=== PATIENT | male | born 1960 | race Caucasian/White ===

== ENCOUNTER 2019-03-21 21:35 | Inpatient (IN) | payer BC ==
--- NOTE | 2019-03-21 22:00 | ED Physician Documentation ---
PD HPI NVD - Stated complaint Stated Complaint: ABD PX - Chief complaint Chief Complaint: Abd Pain - History obtained from History obtained from: Patient - History of Present Illness Timing - onset: How many days ago (2-3) Timing - duration: Days (2-3) Timing - details: Abrupt onset, Still present Associated symptoms: Abdominal pain (for 2-3 days, with less appetite, fullness, and nausea. No vomiting. Unable to eat due to increased nausea and fullness with that. Has had some diarrhea onset just today.), Loss of appetite. No: Melena, Hematochezia, Dysuria Contributing factors: No: Sick contact, Bad food, Recent antibiotics Improved by: No: Eating, Position Worsened by: Eating, Moving (feels more crampy with moving and walking). No: Position Similar symptoms before: Has not had sx before Recently seen: Not recently seen Review of Systems Constitutional: reports: Myalgias. denies: Fever, Chills Nose: denies: Rhinorrhea / runny nose, Congestion Throat: denies: Sore throat Cardiac: denies: Chest pain / pressure, Palpitations Respiratory: reports: Cough (mild persistent from smoking). denies: Dyspnea GI: reports: Abdominal Pain, Nausea, Diarrhea (mild today), Other (In further questioning he states he does eat a lot of chicken. He is not aware of swallowing anything sharp in the last week or so. He has not had previous abdominal surgery.). denies: Abdominal Swelling, Vomiting, Constipation, Bloody / black stool : denies: Dysuria, Frequency Neurologic: reports: Generalized weakness. denies: Focal weakness, Numbness, Near syncope, Altered mental status, Headache PD PAST MEDICAL HISTORY - Past Medical History Cardiovascular: None Respiratory: None Neuro: None Endocrine/Autoimmune: None - Past Surgical History Past Surgical History: No - Allergies Allergies/Adverse Reactions: Allergies Allergy/AdvReac Type Severity Reaction Status Date / Time Penicillins Allergy Unknown Verified 03/21/19 21:51 - Living Situation Living Arrangement: reports: At home - Social History Does the pt smoke?: Yes - Family History Family history: reports: Non contributory PD ED PE NORMAL - Vitals Vital signs reviewed: Yes - General General: Alert and oriented X 3, Well developed/nourished, Other (seems uncomfortable in abdomen) - HEENT HEENT: Ears normal, Pharynx benign. No: Moist mucous membranes - Neck Neck: Supple, no meningeal sign, No adenopathy - Cardiac Cardiac: RRR (mild tachycardic), No murmur - Respiratory Respiratory: Clear bilaterally - Abdomen Abdomen: Soft, Other (diffusely tender, but most in central/mid abd and to left mid abd. Not tender RUQ itself. Some rebound and percussion tenderness in mid abdomen. ). No: Normal bowel sounds (increased) - Male Male : Other (no inguinal hernias felt) - Rectal Rectal: Deferred - Back Back: No CVA TTP - Derm Derm: Normal color, Warm and dry - Extremities Extremities: Normal ROM s pain, No edema, No calf tenderness / cord - Neuro Neuro: Alert and oriented X 3, No motor deficit, Normal speech Results - Vitals Vitals: Vital Signs - 24 hr 03/21/19 03/21/19 03/21/19 21:51 22:13 23:45 Temperature 36.8 C Heart Rate 109 H 88 81 Respiratory 22 18 16 Rate Blood Pressure 159/87 H 127/84 H 147/80 H O2 Saturation 99 97 97 03/22/19 03/22/19 03/22/19 00:33 02:11 03:04 Temperature 37.1 C Heart Rate 84 85 86 Respiratory 16 16 16 Rate Blood Pressure 149/85 H 131/84 H 134/83 H O2 Saturation 96 94 92 03/22/19 03/22/19 03/22/19 04:35 05:41 06:32 Temperature 36.5 C Heart Rate 81 81 78 Respiratory 16 16 16 Rate Blood Pressure 119/64 126/77 136/68 H O2 Saturation 94 95 96 Oxygen O2 Source Room air - Labs Labs: Laboratory Tests 03/21/19 03/21/19 03/21/19 22:00 22:00 23:20 WBC 11.9 H RBC 5.24 Hgb 15.5 Hct 47.0 MCV 89.7 MCH 29.6 MCHC 33.0 RDW 14.4 Plt Count 443 MPV 9.0 Neut # (Auto) 9.3 H Lymph # (Auto) 1.1 L Kaufman # (Auto) 1.2 H Eos # (Auto) 0.2 Baso # (Auto) 0.1 Absolute Nucleated RBC 0.00 Nucleated RBC % 0.0 Sodium 139 Potassium 4.1 Chloride 102 Carbon Dioxide 21 Anion Gap 16.0 H BUN 23 H Creatinine 1.0 Estimated GFR (MDRD) 77 L Glucose 165 H Calcium 9.8 Total Bilirubin 1.4 H AST 22 ALT 23 Alkaline Phosphatase 103 Total Protein 9.1 H Albumin 3.9 Globulin 5.2 H Albumin/Globulin Ratio 0.8 L Lipase 23 Urine Color YELLOW Urine Clarity SL. CLOUDY Urine pH 5.0 Ur Specific [place] 1.015 Urine Protein 100 H Urine Glucose (UA) NEGATIVE Urine Ketones TRACE Urine Occult Blood SMALL H Urine Nitrite NEGATIVE Urine Bilirubin NEGATIVE Urine Urobilinogen 1 (NORMAL) Ur Leukocyte Esterase NEGATIVE Urine RBC 0-5 Urine WBC 0-3 Ur Squamous Epith Cells FEW Squamous Urine Bacteria None Seen Urine Casts 3-5 Granular Casts Urine Mucus Moderate Strands Ur Microscopic Review INDICATED Urine Culture Comments NOT INDICATED - Rads (name of study) abd CT Radiology: Prelim report reviewed (1.8 cm linear density consistent with likely piece of bone which appears to have perforated the intestinal wall at the distal small bowel with localized free fluid and free air but no abscess. There is segment of inflammation of the intestine in that area.), See rad report PD MEDICAL DECISION MAKING - ED course Complexity details: reviewed results, re-evaluated patient, considered differential, d/w patient, d/w lactation consultant (I talked with Dr. Mercedes who is on for surgery. She states she would be in first thing in the morning as the patient's has good vitals is afebrile and normal minimally elevated white count. She felt he was stable to not need surgery in the middle of night. We will continue IV fluids. Pain medicines as needed. Start antibiotics. Advised the patient he will be needing surgery in the timeframe for that. We will call Dr. Camacho sooner if he seems to develop sepsis symptoms.) Departure - Departure Disposition: ED Transfer to [facility] Clinical Impression: Perforated abdominal viscus Abdominal pain Qualifiers: Abdominal location: generalized Qualified Code(s): R10.84 - Generalized abdominal pain Condition: Stable Record reviewed to determine appropriate education?: Yes
[2019-03-21] MEDS ORDERED: SODIUM CHLORIDE 0.9% 1,000 ML IV ONE ×2 (22:14→22:15)
[2019-03-21] MEDS ORDERED: HYDROmorphone 1 MG/ML CARPUJECT IVP STA (22:14)
[2019-03-21] MEDS ORDERED: ONDANSETRON 4 MG/2 ML VIAL IVP STA (22:14)
[2019-03-21] MEDS ORDERED: FAMOTIDINE 20 MG/2 ML VIAL IVP STA (22:15)
[2019-03-21 22:22] LABS: BASOPHILS # (AUTO) 0.1 10^3/uL (0.0-0.1); BASOPHILS % (AUTO) 0.5 %; EOSINOPHILS # (AUTO) 0.2 10^3/uL (0.0-0.7); EOSINOPHILS % (AUTO) 1.4 %; HGB - HEMOGLOBIN 15.5 g/dL (14.0-18.0); LYMPHOCYTES # (AUTO) 1.1 10^3/uL (1.5-3.5); LYMPHOCYTES % (AUTO) 9.1 %; MEAN CORPUSCULAR HEMOGLOBIN 29.6 pg (27.0-31.0); MEAN CORPUSCULAR VOLUME 89.7 fL (80.0-94.0); MONOCYTES # (AUTO) 1.2 10^3/uL (0.0-1.0); MONOCYTES % (AUTO) 10.4 %; NEUTROPHILS # (AUTO) 9.3 10^3/uL (1.5-6.6); PLT - PLATELET COUNT 443 10^3/uL (130-450); RED BLOOD COUNT 5.24 10^6/uL (4.70-6.10); RED CELL DISTRIBUTION WIDTH 14.4 % (12.0-15.0); WHITE BLOOD COUNT 11.9 x10^3/uL (4.8-10.8)
[2019-03-21 22:32] LABS: ALBUMIN 3.9 g/dL (3.2-5.5); ALBUMIN/GLOBULIN RATIO 0.8 (1.0-2.2); BILIRUBIN,TOTAL 1.4 mg/dL (0.2-1.0); CALCIUM 9.8 mg/dL (8.5-10.3); TOTAL PROTEIN 9.1 g/dL (6.7-8.2)
[2019-03-21] MEDS ORDERED: IOVERSOL 320 100 ML VIAL IVP ONE ×2 (22:37→23:11)
[2019-03-21 23:28] LABS: GLUCOSE, URINE (UA) NEGATIVE (NEGATIVE); KETONES,URINE (UA) TRACE mg/dL (NEGATIVE); LEUKOCYTE ESTERASE, URINE NEGATIVE (NEGATIVE); NITRITE,URINE NEGATIVE (NEGATIVE); OCCULT BLOOD,URINE SMALL (NEGATIVE); PROTEIN,URINE 100 mg/dL (NEGATIVE); UROBILINOGEN,URINE 1 (NORMAL) E.U./dL (NORMAL)
[2019-03-21 23:49] LABS: CLARITY,URINE SL. CLOUDY (CLEAR)
[2019-03-21 23:50] LABS: BACTERIA,URINE None Seen /HPF (None Seen); BILIRUBIN,URINE NEGATIVE (NEGATIVE); ICTOTEST,URINE NEGATIVE; MUCUS,URINE Moderate Strands; RBC,URINE 0-5 /HPF (0-5); SQUAMOUS EPITHELIAL CELL,UR FEW Squamous (<= Few)
--- NOTE | 2019-03-21 23:55 | CT Report ---
Reason: abd pain for 3 days, mid abd Procedure Date: 03/21/2019 Accession Number: [id number] / [id number] Procedure: CT - Abdomen/Pelvis W CPT Code: FULL RESULT: EXAM: CT ABDOMEN AND PELVIS EXAM DATE: 03/21/2019 11:09 PM. CLINICAL HISTORY: Abd pain for 3 days, mid abd. COMPARISONS: None. TECHNIQUE: Routine helical CT imaging was performed through the abdomen and pelvis. IV contrast: 100 cc Optiray 320. Enteric contrast: No. Reconstructions: Coronal and sagittal. In accordance with CT protocol optimization, one or more of the following dose reduction techniques were utilized for this exam: automated exposure control, adjustment of mA and/or KV based on patient size, or use of iterative reconstructive technique. FINDINGS: ABDOMEN: Lung Bases: Incompletely included lower lungs are grossly clear. Heart size is within normal limits. No basilar effusions. Liver: Unremarkable. Spleen: Unremarkable. Pancreas: Unremarkable. Gallbladder/Bile Ducts: Gallbladder is unremarkable. Biliary tree is normal caliber. Adrenal Glands: Unremarkable. Kidneys: Left renal cysts are present. 3 mm left interpolar renal calculus. No hydronephrosis. Right kidney is unremarkable. Peritoneum/Mesentery/Bowel: Segmental thickening and inflammation of distal ileum. 1.8 cm linear hyperdensity extending through posterior ileum wall in the upper anterior pelvis (3/81). Adjacent mesentery is severely inflamed. There is a small amount of extraperitoneal free air. Lymph nodes: No mesenteric, periportal, or retroperitoneal lymphadenopathy. Vasculature: Abdominal aorta is nonaneurysmal. Portal vein is patent. Hepatic veins are patent. PELVIS: The bladder is unremarkable for the degree of distention. Prostate is present. No pelvic lymphadenopathy. Bones: No suspicious osseous lesions. IMPRESSION: 1.8 cm linear likely fragment of bone or a needle perforating distal small bowel. There is associated segmental distal small bowel inflammation/infection. Small amount of adjacent intraperitoneal free air and severe inflammation of the adjacent mesentery. No fluid collections to suggest abscess. [facility]
[2019-03-22] MEDS ORDERED: cefTRIAXone 2 GM VIAL IVP STA (00:18)
[2019-03-22] MEDS ORDERED: metroNIDAZOLE 500 MG/100 ML 500 MG/100 ML BAG ONE (00:33)
[2019-03-22] MEDS ORDERED: metroNIDAZOLE 500 MG/100 ML 500 MG/100 ML BAG IV SCH ×2 (00:34→01:00)
[2019-03-22] MEDS ORDERED: metroNIDAZOLE 500 MG/100 ML 500 MG/100 ML BAG IV ONE (01:32)
[2019-03-22] MEDS ORDERED: HYDROmorphone 1 MG/ML CARPUJECT IVP STA (02:12)
[2019-03-22] MEDS ORDERED: SODIUM CHLORIDE 0.9% 1,000 ML IV ONE (02:12)
[2019-03-22] MEDS ORDERED: cefOXitin 2 GM in SODIUM CHLORIDE 0.9% MINIBAG 100 ML IV STA (07:15)
--- NOTE | 2019-03-22 07:15 | ANESTHESIA ---
Pre-Anesthesia VS, & Labs - Diagnosis perforated bowel with foreign body - Procedure laparotomy with indicated procedures Vital Signs: Temp Pulse Resp BP Pulse Ox 36.5 C 78 16 136/68 H 96 03/22/19 05:41 03/22/19 06:32 03/22/19 06:32 03/22/19 06:32 03/22/19 06:32 Height 6 ft 3 in Weight (kg) 133.084 kg Body Mass Index 36.6 - NPO >8 hours - Lab Results Current Lab Results: Laboratory Tests 03/21/19 22:00: Sodium 139, Potassium 4.1, Chloride 102, Carbon Dioxide 21, Anion Gap 16.0 H, BUN 23 H, Creatinine 1.0, Estimated GFR (MDRD) 77 L, Glucose 165 H, Calcium 9.8, Total Bilirubin 1.4 H, AST 22, ALT 23, Alkaline Phosphatase 103, Total Protein 9.1 H, Albumin 3.9, Globulin 5.2 H, Albumin/Globulin Ratio 0.8 L, Lipase 23 03/21/19 22:00: WBC 11.9 H, RBC 5.24, Hgb 15.5, Hct 47.0, MCV 89.7, MCH 29.6, MCHC 33.0, RDW 14.4, Plt Count 443, MPV 9.0, Neut # (Auto) 9.3 H, Lymph # (Auto) 1.1 L, [place]aines # (Auto) 1.2 H, Eos # (Auto) 0.2, Baso # (Auto) 0.1, Absolute Nucle ated RBC 0.00, Nucleated RBC % 0.0 Fish Bones: 03/21/19 22:00 03/21/19 22:00 Home Medications and Allergies Active Medications Metronidazole (Flagyl 500 Mg/100 Ml) 500 mg in 100 mls @ 100 mls/hr IV ONCE BRIANA Last Admin: 03/22/19 01:35 Dose: Not Given Allergies/Adverse Reactions: Allergies Allergy/AdvReac Type Severity Reaction Status Date / Time Penicillins Allergy Unknown Verified 03/21/19 21:51 Anes History & Medical History - Anesthetic History Anesthesia Complications: reports: No previous complications - Medical History Cardiovascular: reports: None Pulmonary: reports: None Gastrointestinal: reports: None Urinary: reports: Kidney stones Neuro: reports: None Endocrine/Autoimmune: reports: None Smoking Status: Current every day smoker Psychosocial: reports: Depression Exam General: Alert Dental: WNL Mallampati classification: II Respiratory: Lungs clear Cardiovascular: Regular rate, Normal S1, Normal S2 Plan Anesthesia Type: General Consent for Procedure(s) Verified and Reviewed: Yes Code Status: Attempt Resuscitation ASA classification: 2-Mild systemic disease Is this case an emergency?: Yes
[2019-03-22] MEDS: HYDROmorphone 1 MG/ML CARPUJECT IVP STA ×2 (07:20)
[2019-03-22] MEDS ORDERED: ceFAZolin 1 GM VIAL ONE (07:32)
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
[2019-03-22] MEDS ORDERED: cefOXitin 2 GM VIAL IV ONE ×2 (07:38→08:37)
[2019-03-22] MEDS ORDERED: LACTATED RINGERS 1,000 ML IV ONE (07:45)
[2019-03-22] MEDS ORDERED: BUPIVACAINE 0.5% PF 10 ML VIAL ONE (08:21)
[2019-03-22] MEDS ORDERED: BUPIVACAINE 0.5%-EPI 1:200000 PF 30 ML VIAL ONE (08:21)
[2019-03-22] MEDS ORDERED: LIDOCAINE MPF 1%-EPI 1:200000 30 ML VIAL ONE (08:23)
[2019-03-22] MEDS ORDERED: ONDANSETRON 4 MG/2 ML VIAL IVP ONE (08:37)
[2019-03-22] MEDS ORDERED: NEOSTIGMINE 1 MG/1 ML 10 ML MDV IVP ONE (08:37)
[2019-03-22] MEDS ORDERED: fentaNYL 100 MCG/2 ML VIAL IVP ONE (08:37)
[2019-03-22] MEDS ORDERED: ROCURONIUM 50 MG/5 ML VIAL IVP ONE (08:37)
[2019-03-22] MEDS ORDERED: KETOROLAC 30 MG/ML VIAL IVP ONE (08:37)
[2019-03-22] MEDS ORDERED: ACETAMINOPHEN 1,000 MG/100 ML 100 ML IV ONE (08:37)
[2019-03-22] MEDS ORDERED: PROPOFOL 200 MG/20 ML VIAL IVP ONE (08:37)
[2019-03-22] MEDS ORDERED: GLYCOPYRROLATE 1 MG/5 ML VIAL IVP ONE (08:37)
[2019-03-22] MEDS ORDERED: BUPIVACAINE 0.5% PF 10 ML VIAL IM ONE (08:38)
[2019-03-22] MEDS ORDERED: LIDOCAINE 1%-EPI 1:100000 30 ML MDV SUBQ ONE (08:38)
--- NOTE | 2019-03-22 08:54 | OPERATIVE REPORT ---
Operative Report - General Procedure Date: 03/22/19 Planned Procedure: Exploratory Laparotomy with Removal of Foreign Body and Indicated Procedures Pre-Op Diagnosis: Perforated Viscus with Foreign Procedure Performed: Exploratory Laparotomy with Removal of Foreign Body and Meckel's Diverticulectomy Post Op Diagnosis: Perforated Meckel's Diverticulum - Procedure Note Primary Surgeon: Doug Anesthesia Provider: Dr. Rodriguez Anesthesia Technique: General LMA, Local Pathology: Portion of bowel and foreign body to pathology in formalin Estimated Blood Loss (mL): 25 Findings: 1. Meckel's Diverticulum perforated by a portion of foreign body resembling a toothpick 2. Small, contained, intraperitoneal abscess Complications: None apparent - Other Other Information/Narrative: After obtaining informed consent, the patient is brought to the operating room and placed in the supine position on the operating table. Following successful induction of general endotracheal anesthesia, appropriate padding of vomiting prominences, and placement of appropriate monitors, the abdomen was prepped and draped in the standard surgical fashion. A timeout was held per SCOAP protocol. Following infiltration with local anesthetic to create a field block, an incision was created inferior to the umbilicus and carried down through the skin and subcutaneous tissue to reveal the fascia below. The fascia was opened under direct vision followed by the peritoneum. We immediately encountered a small volume of murky fluid. There was no associated foul odor.The wound protector was placed in the abdominal cavity.The involved segment of bowel was then mobilized into the wound.There was a small contained abscess lateral to the palpable foreign object.Foreign object itself was grasped and removed from the bowel with a clamp. It was consistent with a half of a toothpick.We then examined the remaining bowel. It appeared to be healthy. The toothpick had perforated a 3 cm widemouth Meckel's diverticulum.I elected to remove the entire Meckel's diverticulum. This was done using a 75 mm gastrointestinal anastomotic device. This was placed across the base of the Meckel's diverticulum being ca reful not to narrow the ileum.The diverticulum itself was located in approximately the mid ileum at least 36 inches from the ileocecal valve.We did not mobilize the right colon or appendix.The staple line was then oversewn with interrupted Vicryl suture.The small bowel was evaluated proximally to the ligament of Treitz and distally to the ileocecal valve. No other abnormalities were appreciated. The abdomen was irrigated with warm saline solution and aspirated free of all fluid and particulate matter. The peritoneum was closed with running Vicryl suture. The fascia was closed with 0 PDS suture. Subcutaneous tissues were closed with Vicryl and clips were applied in the skin. Due to the small intra-abdominal abscess, the clips were packed in between with quarter inch iodoform gauze. All sponge, needle, and instrument counts were correct at the conclusion of the case. The patient was allowed to awaken from anesthesia without difficulty and taken to the post anesthesia care unit in good condition.
[2019-03-22] MEDS ORDERED: ACETAMINOPHEN 325 MG TABLET PO PRN (09:01)
[2019-03-22] MEDS ORDERED: SUGAMMADEX 200 MG/2 ML VIAL IVP ONE (09:04)
[2019-03-22] MEDS: DEXTROSE 5%-0.9% NACL 1,000 ML IV SCH (10:45)
[2019-03-22] MEDS: PANTOPRAZOLE 40 MG TABLET PO SCH (11:32)
[2019-03-22] MEDS: metroNIDAZOLE 500 MG/100 ML 500 MG/100 ML BAG IV SCH ×2 (13:29→21:01)
[2019-03-22] MEDS ORDERED: cefOXitin 2 GM in SODIUM CHLORIDE 0.9% MINIBAG 100 ML IV SCH (14:00)
[2019-03-22] MEDS: KETOROLAC 30 MG/ML VIAL IVP PRN (16:26)
[2019-03-22] MEDS: cefOXitin 2 GM in SODIUM CHLORIDE 0.9% MINIBAG 100 ML IV SCH (16:27)
[2019-03-22] MEDS: SODIUM CHLORIDE FLUSH 0.9% 10 ML SYRINGE IVP SCH (16:28)
[2019-03-22] MEDS: HYDROmorphone 1 MG/ML CARPUJECT IVP PRN (20:56)
[2019-03-22] MEDS: ONDANSETRON 4 MG/2 ML VIAL IVP PRN (21:08)
[2019-03-23] MEDS: HYDROmorphone 1 MG/ML CARPUJECT IVP PRN ×4 (00:06→15:52)
[2019-03-23] MEDS: ONDANSETRON 4 MG/2 ML VIAL IVP PRN ×2 (00:07→08:04)
[2019-03-23] MEDS: DEXTROSE 5%-0.9% NACL 1,000 ML IV SCH ×2 (00:10→11:12)
[2019-03-23] MEDS: cefOXitin 2 GM in SODIUM CHLORIDE 0.9% MINIBAG 100 ML IV SCH ×4 (00:11→23:57)
[2019-03-23] MEDS: SODIUM CHLORIDE FLUSH 0.9% 10 ML SYRINGE IVP SCH ×4 (00:14→23:58)
[2019-03-23] MEDS ORDERED: METOPROLOL SUCCINATE 25 MG TABLET PO ONE (00:56)
[2019-03-23] MEDS: KETOROLAC 30 MG/ML VIAL IVP PRN ×2 (01:19→08:04)
[2019-03-23 05:06] LABS: BASOPHILS # (AUTO) 0.1 10^3/uL (0.0-0.1); BASOPHILS % (AUTO) 0.7 %; EOSINOPHILS # (AUTO) 0.5 10^3/uL (0.0-0.7); EOSINOPHILS % (AUTO) 5.1 %; HGB - HEMOGLOBIN 12.8 g/dL (14.0-18.0); LYMPHOCYTES # (AUTO) 1.3 10^3/uL (1.5-3.5); LYMPHOCYTES % (AUTO) 14.8 %; MEAN CORPUSCULAR HEMOGLOBIN 29.7 pg (27.0-31.0); MEAN CORPUSCULAR HGB CONC 31.9 g/dL (32.0-36.0); MEAN PLATELET VOLUME 8.5 fL (7.4-11.4); MONOCYTES # (AUTO) 1.1 10^3/uL (0.0-1.0); MONOCYTES % (AUTO) 11.9 %; NEUTROPHILS % (AUTO) 67.2 %; PLT - PLATELET COUNT 389 10^3/uL (130-450); RED BLOOD COUNT 4.31 10^6/uL (4.70-6.10); RED CELL DISTRIBUTION WIDTH 14.6 % (12.0-15.0); WHITE BLOOD COUNT 8.9 x10^3/uL (4.8-10.8)
[2019-03-23 05:19] LABS: ALBUMIN/GLOBULIN RATIO 0.8 (1.0-2.2); BILIRUBIN,TOTAL 0.9 mg/dL (0.2-1.0); CALCIUM 8.5 mg/dL (8.5-10.3); CREATININE 0.8 mg/dL (0.6-1.2); TOTAL PROTEIN 6.8 g/dL (6.7-8.2)
[2019-03-23] MEDS: metroNIDAZOLE 500 MG/100 ML 500 MG/100 ML BAG IV SCH ×2 (06:19→13:44)
[2019-03-23] MEDS: PANTOPRAZOLE 40 MG TABLET PO SCH ×2 (06:20→21:39)
--- NOTE | 2019-03-23 07:43 | PROVIDER PROGRESS NOTE ---
Subjective - Prog Note Date Prog Note Date: 03/23/19 Prog Note Time: 07:41 - Subjective Pt reports feeling: Improved Subjective: Mukul reports feeling significantly better this morning. He says his abdomen feels much less sore than it did before we operated on it. He has not been out of bed and walked yet. He says he knows he has hypertension and has been on and off medication for many years. He periodically neglects to refill the prescription.Dr. Foy is his primary care physician. Objective - Vital Signs/Intake & Output Reviewed Vital Signs: Yes Vital Signs: Vital Signs x48h Temp Pulse Resp BP Pulse Ox 03/23/19 06:56 81 190/89 H 03/23/19 00:40 182/80 H 03/23/19 00:35 37.0 C 88 16 172/79 H 99 Intake & Output: Intake & Output 03/20/19 03/21/19 03/22/19 03/23/19 23:59 23:59 23:59 23:59 Intake Total 1000 5456 700 Output Total 1225 425 Balance 1000 4231 275 - Objective General Appearance: positive: No acute distress, Alert Eyes Bilateral: positive: Normal inspection, PERRL, EOMI ENT: positive: ENT inspection nml, Pharynx nml, No signs of dehydration Neck: positive: Nml inspection, Thyroid nml, No JVD, Trachea midline Respiratory: positive: Chest non-tender, No respiratory distress, Breath sounds nml Cardiovascular: positive: Regular rate & rhythm, No murmur, No gallop Abdomen: positive: Nml bowel sounds, Tenderness (Appropriately tender to palp ation in the periumbilical region. The wound is clean. Packing is removed this morning.) Skin: positive: Color nml, No rash, Warm, Dry Extremities: positive: Non-tender Neurologic/Psychiatric: positive: Oriented x3, CN's nml (2-12) - Lab Results Fish Bones: 03/23/19 04:55 03/23/19 04:55 Other Labs: Lab Results x24hrs 03/23/19 03/23/19 Range/Units 04:55 04:55 WBC 8.9 (4.8-10.8) x10^3/uL RBC 4.31 L (4.70-6.10) 10^6/uL Hgb 12.8 L (14.0-18.0) g/dL Hct 40.1 L (42.0-52.0) % MCV 93.0 (80.0-94.0) fL MCH 29.7 (27.0-31.0) pg MCHC 31.9 L (32.0-36.0) g/dL RDW 14.6 (12.0-15.0) % Plt Count 389 (130-450) 10^3/uL MPV 8.5 (7.4-11.4) fL Neut # (Auto) 6.0 (1.5-6.6) 10^3/uL Lymph # (Auto) 1.3 L (1.5-3.5) 10^3/uL [place] # (Auto) 1.1 H (0.0-1.0) 10^3/uL Eos # (Auto) 0.5 (0.0-0.7) 10^3/uL Baso # (Auto) 0.1 (0.0-0.1) 10^3/uL Absolute Nucleated RBC 0.00 x10^3/uL Nucleated RBC % 0.0 /100WBC Sodium 140 (135-145) mmol/L Potassium 3.9 (3.5-5.0) mmol/L Chloride 104 (101-111) mmol/L Carbon Dioxide 25 (21-32) mmol/L Anion Gap 11.0 (6-13) BUN 20 (6-20) mg/dL Creatinine 0.8 (0.6-1.2) mg/dL Estimated GFR (MDRD) 99 (>89) Glucose 129 H (70-100) mg/dL Calcium 8.5 (8.5-10.3) mg/dL Total Bilirubin 0.9 (0.2-1.0) mg/dL AST 14 (10-42) IU/L ALT 18 (10-60) IU/L Alkaline Phosphatase 77 (42-121) IU/L Total Protein 6.8 (6.7-8.2) g/dL Albumin 3.0 L (3.2-5.5) g/dL Globulin 3.8 (2.1-4.2) g/dL Albumin/Globulin Ratio 0.8 L (1.0-2.2) - Diagnostic Imaging Diagnostic Imaging Comments: Nothing new to review ABX Reporting Has patient been on IV antibiotics over the past 48 hours?: Yes Assessment/Plan - Problem List (1) Perforated abdominal viscus Impression: Abdominal pain due to perforated abdominal viscus. This is significantly improved status post laparotomy with removal of foreign body and Meckel's diverticulectomy.We will restart the patient's home antihypertensive which is lisinopril with hydrochlorothiazide.He will get up and walk around this morning. If he does well, we will plan to discharge him about noon.He is going to call and check with his sister to see if she can provide him with a ride home. (2) Abdominal pain Qualifiers: Abdominal location: generalized Qualified Code(s): R10.84 - Generalized abdominal pain
[2019-03-23] MEDS: SODIUM CHLORIDE FLUSH 0.9% 10 ML SYRINGE IVP PRN ×4 (08:04→22:39)
[2019-03-23] MEDS ORDERED: LISINOPRIL 5 MG TABLET PO SCH (09:00)
[2019-03-23] MEDS ORDERED: hydroCHLOROthiazide 12.5 MG CAPSULE PO SCH (09:00)
[2019-03-23] MEDS ORDERED: oxyCODONE 5 MG TABLET PO PRN (10:46)
[2019-03-23] MEDS: FAMOTIDINE 20 MG/2 ML VIAL IVP SCH ×2 (11:11→21:39)
[2019-03-23] MEDS: CALCIUM CARBONATE CHEW 500 MG TABLET PO SCH ×2 (11:11→21:38)
[2019-03-23] MEDS: FUROSEMIDE 20 MG/2 ML VIAL IVP SCH (11:11)
--- NOTE | 2019-03-23 15:53 | PROVIDER PROGRESS NOTE ---
Subjective - Prog Note Date Prog Note Date: 03/23/19 Prog Note Time: 15:51 - Subjective Pt reports feeling: No change Subjective: Klever says he has continued to have reflux all afternoon. He has required Toradol, oxycodone, and Dilaudid for pain control. He walked a little in the halls but is still a bit uncomfortable. Denies any nausea but reports significant burning and epigastric pain. He adds that he deals with reflux symptoms most of the time at home. Objective - Vital Signs/Intake & Output Vital Signs: Vital Signs x48h Pulse Resp BP Pulse Ox 03/23/19 09:30 76 172/86 H 95 03/23/19 07:52 85 20 201/95 H 96 Intake and Output 03/20/19 03/21/19 03/22/19 03/23/19 23:59 23:59 23:59 23:59 Intake Total 1000 5456 2500 Output Total 1225 1575 Balance 1000 4231 925 Intake: Intake, IV Amount 1000 3400 1400 Dextrose 5%-0.9% NaCl 1, 1000 1000 000 ml @ 100 mls/hr IV . Q10H BRIANA Rx#:[id number] Sodium Chloride 0.9% 1, 1000 000 ml @ 250 mls/hr IV . Q4H ONE Rx#:[id number] Sodium Chloride 0.9% 1, 1000 000 ml @ Wide Open IV . Q0M ONE Rx#:[id number] Sodium Chloride 0.9% 1, 1000 000 ml @ Wide Open IV . Q0M ONE Rx#:[id number] cefOXitin 2 gm In Sodium 100 200 Chloride 0.9% Minibag 100 ml @ 100 mls/hr IV Q8H BRIANA Rx#:[id number] metroNIDAZOLE 500 MG/100 100 ML 500 mg In 100 ml @ 100 mls/hr IV ONCE BRIANA Rx#: [id number] metroNIDAZOLE 500 MG/100 200 200 ML 500 mg In 100 ml @ 100 mls/hr IV Q8HR BRIANA Rx#: [id number] Oral 2056 1100 Output: Urine 1225 1575 Other: # Voids 1 1 % Meal consumed 90% 75% Vital Signs 03/21/19 03/21/19 03/21/19 21:51 22:13 23:45 Temperature 36.8 C Heart Rate 109 H 88 81 Heart Rate [ Brachial] Respiratory 22 18 16 Rate Blood Pressure 159/87 H 127/84 H 147/80 H Blood Pressure [Left Brachial artery] O2 Saturation 99 97 97 03/22/19 03/22/19 03/22/19 00:33 02:11 03:04 Temperature 37.1 C Heart Rate 84 85 86 Heart Rate [ Brachial] Respiratory 16 16 16 Rate Blood Pressure 149/85 H 131/84 H 134/83 H Blood Pressure [Left Brachial artery] O2 Saturation 96 94 92 03/22/19 03/22/19 03/22/19 04:35 05:41 06:32 Temperature 36.5 C Heart Rate 81 81 78 Heart Rate [ Brachial] Respiratory 16 16 16 Rate Blood Pressure 119/64 126/77 136/68 H Blood Pressure [Left Brachial artery] O2 Saturation 94 95 96 03/22/19 03/22/19 03/22/19 07:41 09:04 09:05 Temperature 37.4 C Heart Rate 82 85 86 Heart Rate [ Brachial] Respiratory 18 15 16 Rate Blood Pressure 158/92 H 144/72 H 138/71 H Blood Pressure [Left Brachial artery] O2 Saturation 96 100 100 03/22/19 03/22/19 03/22/19 09:10 09:15 09:22 Temperature 37.6 C H Heart Rate 82 81 77 Heart Rate [ Brachial] Respiratory 16 18 17 Rate Blood Pressure 154/78 H 157/73 H 155/71 H Blood Pressure [Left Brachial artery] O2 Saturation 100 100 99 03/22/19 03/22/19 03/22/19 09:25 09:31 09:40 Temperature 37.4 C 36.4 C L Heart Rate 78 77 Heart Rate [ 74 Brachial] Respiratory 17 18 18 Rate Blood Pressure 147/64 H 144/66 H Blood Pressure 143/60 H [Left Brachial artery] O2 Saturation 99 96 99 03/22/19 03/22/19 03/22/19 10:10 11:10 12:10 Temperature 36.5 C 36.5 C 36.6 C Heart Rate Heart Rate [ 75 70 72 Brachial] Respiratory 18 20 18 Rate Blood Pressure Blood Pressure 135/72 H 139/66 H 141/68 H [Left Brachial artery] O2 Saturation 98 96 96 03/22/19 03/22/19 03/23/19 16:06 20:22 00:35 Temperature 36.7 C 36.8 C 37.0 C Heart Rate Heart Rate [ 78 78 88 Brachial] Respiratory 20 20 16 Rate Blood Pressure Blood Pressure 143/63 H 167/80 H 172/79 H [Left Brachial artery] O2 Saturation 98 98 99 03/23/19 03/23/19 03/23/19 00:40 06:56 07:52 Temperature Heart Rate Heart Rate [ 81 85 Brachial] Respiratory 20 Rate Blood Pressure Blood Pressure 182/80 H 190/89 H 201/95 H [Left Brachial artery] O2 Saturation 96 03/23/19 09:30 Temperature Heart Rate Heart Rate [ 76 Brachial] Respiratory Rate Blood Pressure Blood Pressure 172/86 H [Left Brachial artery] O2 Saturation 95 Intake & Output: Intake & Output 03/20/19 03/21/19 03/22/19 03/23/19 23:59 23:59 23:59 23:59 Intake Total 1000 5456 2500 Output Total 1225 1575 Balance 1000 4231 925 - Objective General Appearance: positive: No acute distress, Alert - Lab Results Fish Bones: 03/23/19 04:55 03/23/19 04:55 Other Labs: Lab Results x24hrs 03/23/19 03/23/19 Range/Units 04:55 04:55 WBC 8.9 (4.8-10.8) x10^3/uL RBC 4.31 L (4.70-6.10) 10^6/uL Hgb 12.8 L (14.0-18.0) g/dL Hct 40.1 L (42.0-52.0) % MCV 93.0 (80.0-94.0) fL MCH 29.7 (27.0-31.0) pg MCHC 31.9 L (32.0-36.0) g/dL RDW 14.6 (12.0-15.0) % Plt Count 389 (130-450) 10^3/uL MPV 8.5 (7.4-11.4) fL Neut # (Auto) 6.0 (1.5-6.6) 10^3/uL Lymph # (Auto) 1.3 L (1.5-3.5) 10^3/uL [place] # (Auto) 1.1 H (0.0-1.0) 10^3/uL Eos # (Auto) 0.5 (0.0-0.7) 10^3/uL Baso # (Auto) 0.1 (0.0-0.1) 10^3/uL Absolute Nucleated RBC 0.00 x10^3/uL Nucleated RBC % 0.0 /100WBC Sodium 140 (135-145) mmol/L Potassium 3.9 (3.5-5.0) mmol/L Chloride 104 (101-111) mmol/L Carbon Dioxide 25 (21-32) mmol/L Anion Gap 11.0 (6-13) BUN 20 (6-20) mg/dL Creatinine 0.8 (0.6-1.2) mg/dL Estimated GFR (MDRD) 99 (>89) Glucose 129 H (70-100) mg/dL Calcium 8.5 (8.5-10.3) mg/dL Total Bilirubin 0.9 (0.2-1.0) mg/dL AST 14 (10-42) IU/L ALT 18 (10-60) IU/L Alkaline Phosphatase 77 (42-121) IU/L Total Protein 6.8 (6.7-8.2) g/dL Albumin 3.0 L (3.2-5.5) g/dL Globulin 3.8 (2.1-4.2) g/dL Albumin/Globulin Ratio 0.8 L (1.0-2.2) Assessment/Plan - Problem List (1) Perforated abdominal viscus Impression: Will hold on discharge for now.Stop metronidazole as this may be contributing to his discomfort.Start sucralfate and change Protonix to twice daily.MiraLAX twice daily as well. (2) Abdominal pain Qualifiers: Abdominal location: generalized Qualified Code(s): R10.84 - Generalized abdominal pain
[2019-03-23] MEDS ORDERED: POLYETHYLENE GLYCOL 3350 17 GM PACKET PO PRN (15:54)
[2019-03-23] MEDS: oxyCODONE 5 MG TABLET PO PRN ×2 (16:33→22:38)
[2019-03-23] MEDS ORDERED: hydrALAZINE INJ 20 MG/ML VIAL IVP PRN (16:36)
[2019-03-23] MEDS ORDERED: cloNIDine 0.1 MG TABLET PO PRN (16:44)
[2019-03-23] MEDS: SUCRALFATE 1 GM/10 ML UDC PO SCH ×2 (18:09→21:39)
--- NOTE | 2019-03-23 18:15 | CONSULTATION NOTE ---
Referring Provider Name of Referring Provider:: Dr. Camacho Consult Date: 03/23/19 Chief Complaint - Chief Complaint Chief Complaint: HTN, uncontrollled History of Present Illness - History of Present Illness HPI Comment/Other: pt is referred from Dr. Camacho for consult of uncontrolled HTN. Pt was status post of Exploratory Laparotomy with Removal of Foreign Body due to Perforated Meckel's Diverticulum. pt report he followup his PCP Dr. Foy. He told me he took Lisinopril, HCTZ and Metoprolol at home. He report he was medical non- compliance. he was not followup your PCP for refill of his BP medications. His BP was 206/95, HR 81 when I visited pt. He report he had headache before, now he felt his headache is resolved. He denies chest pain, Shortness of breath. 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 - Substance History Use: Uses substance without health or social issues: NONE Abuse: Recurrent use of substance despite neg consequences: NONE - POLST Patient has POLST: No POLST Status: Full Code Meds/Allgy - Home Medications Home Medications: Ambulatory Orders Medication Instructions Recorded Confirmed Aspirin [Aspirin EC] 81 mg PO DAILY 03/23/19 03/23/19 Famotidine [Pepcid AC] 2 tab PO DAILY PRN 03/23/19 03/23/19 Multivitamin [Multivitamins] 1 tab PO DAILY 03/23/19 03/23/19 Simethicone [Gas Relief] 80 mg PO QID PRN 03/23/19 03/23/19 - Allergies Allergies/Adverse Reactions: Allergies Allergy/AdvReac Type Severity Reaction Status Date / Time Penicillins Allergy Unknown Verified 03/21/19 21:51 Review of Systems - Constitutional Constitutional: denies: Fatigue, Fever, Chills, Malaise, Weakness, Poor appetite, Diaphoresis, Night sweats, Weight gain, Weight loss - Eyes Eyes: denies: Pain, Irritation, Amaurosis, Blurred vision, Spots in vision, Field loss, Vision loss, Dipolpia - Ears, Nose & Throat Ears, Nose & Throat: denies: Ear pain, Hearing loss, Tinnitus, Nasal pain, Nasal discharge, Nosebleeds, Nasal obstruction, Nasal congestion, Postnasal drainage, Dentures, Sore throat, Hoarseness, Mouth lesions, Bleeding gums, Dental decay - Cardiovascular Cariovascular: denies: Irregular heart rate, Palpitations, Chest pain, Edema, Lightheadedness, Syncope, Exertional dyspnea, Decr. exercise tolerance - Respiratory Respiratory: denies: Cough, Sputum production, Wheezing, Snoring, Hemoptysis, Orthopnea, SOB at rest, SOB with exertion - Gastrointestinal Gastrointestinal: denies: Abdominal pain, Abdominal distention, Constipation, Diarrhea, Change in bowel habits, Rectal bleeding, Black stools, Bloody stools, Nausea, Vomiting, Bile emesis, Kishan blood emesis - Genitourinary Genitourinary: denies: Dysuria, Frequency, Urgency, Hematuria, Incontinence, Flank pain, Nocturia, Urethral discharge - Musculoskeletal Musculoskeletal: denies: Muscle pain, Back pain, Muscle aches, Limited range of motion, Muscle weakness, Gout - Integumentary Integumentary: denies: Rash, Pruritis, Lesions, Dryness, Lumps, Acne, Pigment changes, Nail changes - Neurological Neurological: reports: Headache. denies: General weakness, Focal weakness, Dizziness, Numbness, Memory problems, Pre-existing deficit, Abnormal gait, Seizures, Incoordination, Slurred speech - Psychiatric Psychiatric: denies: Depression, Anxiety, Suicidal, Delusions, Hallucinations, Homicidal - Endocrine Endocrine: denies: Polyuria, Polydypsia, Polyphagia, Intolerance to cold - Hematologic/Lymphatic Hematologic/Lymphatic: denies: Anemia, Bruising, Petechiae, Blood clots, Lymphadenopathy, Bleeding tendencies Exam - Vital Signs Reviewed Vital Signs: Yes Vital Signs: Vital Signs x48h Temp Pulse Resp BP BP BP Pulse Ox 03/23/19 18:00 82 169/77 H 169/77 H 03/23/19 17:45 86 180/77 H 03/23/19 17:30 84 173/73 H 03/23/19 17:23 85 171/72 H 03/23/19 17:18 84 169/70 H 03/23/19 17:13 180/86 H 03/23/19 17:05 86 182/77 H 03/23/19 16:56 187/85 H 03/23/19 15:57 36.9 C 81 18 206/95 H 202/97 H 94 - Physical Exam General Appearance: positive: No acute distress, Alert. negative: Lethargic Eyes Bilateral: positive: Normal inspection, PERRL, No lid inflammation, Conjunctivae nml ENT: positive: ENT inspection nml, Pharynx nml, No signs of dehydration. negative: Purulent nasal drainage, Pharyngeal erythema, Oral lesions Neck: positive: Nml inspection, Thyroid nml, No JVD, Trachea midline. negative: Thyromegaly, Lymphadenopathy (R), Lymphadenopathy (L), Stiff neck, Swelling/bruising, Tracheal deviation Respiratory: positive: Chest non-tender, No respiratory distress, Breath sounds nml. negative: Wheezes, Rales, Rhonchi Cardiovascular: positive: Regular rate & rhythm, No murmur, No gallop. negative: Irregularly irregular, Extrasystoles, Tachycardia, Bradycardia, JVD present, Systolic murmur, Diastolic murmur Peripheral Pulses: positive: 2+ Abdomen: positive: Non-tender, No organomegaly. negative: No distention, Tenderness, Guarding, Rebound Back: positive: Nml inspection. negative: CVA tenderness (R), CVA tenderness (L) Skin: positive: Color nml, No rash, Warm, Dry. negative: Cyanosis, Diaphoresis, Pallor Extremities: positive: Non-tender, Full ROM, Nml appearance. negative: Calf tenderness, Joint swelling, Yayo's sign/cords Neurologic/Psychiatric: positive: Oriented x3, Sensation nml, Mood/affect nml. negative: Weakness, Sensory loss, Facial droop, Slurred/abnml speech, Depressed mood/affect Conclusion/Plan - Diagnosis Diagnosis: 1, HTN, uncontrolled. increase pt's home three BP dosage. add PRN hydralazine and Clonidine. pt eat and drink, and normal BUN and creatinine, hold his IVF now. closely vital monitor. 2, medical non-compliance. advise pt for medical compliance, explain the importance of BP controlled. - Lab Results Fish Bones: 03/23/19 04:55 03/23/19 04:55
[2019-03-23] MEDS: METOPROLOL SUCCINATE 25 MG TABLET PO SCH (21:39)
[2019-03-24 05:36] LABS: BASOPHILS # (AUTO) 0.1 10^3/uL (0.0-0.1); BASOPHILS % (AUTO) 0.5 %; EOSINOPHILS # (AUTO) 0.6 10^3/uL (0.0-0.7); EOSINOPHILS % (AUTO) 6.7 %; HGB - HEMOGLOBIN 11.7 g/dL (14.0-18.0); LYMPHOCYTES # (AUTO) 1.6 10^3/uL (1.5-3.5); MEAN CORPUSCULAR HEMOGLOBIN 29.8 pg (27.0-31.0); MEAN CORPUSCULAR HGB CONC 32.1 g/dL (32.0-36.0); MEAN CORPUSCULAR VOLUME 92.9 fL (80.0-94.0); MEAN PLATELET VOLUME 8.6 fL (7.4-11.4); MONOCYTES # (AUTO) 1.1 10^3/uL (0.0-1.0); MONOCYTES % (AUTO) 11.3 %; NEUTROPHILS % (AUTO) 64.1 %; PLT - PLATELET COUNT 363 10^3/uL (130-450); RED BLOOD COUNT 3.92 10^6/uL (4.70-6.10); RED CELL DISTRIBUTION WIDTH 14.6 % (12.0-15.0); WHITE BLOOD COUNT 9.3 x10^3/uL (4.8-10.8)
[2019-03-24 05:47] LABS: ALBUMIN 2.8 g/dL (3.2-5.5); ALBUMIN/GLOBULIN RATIO 0.8 (1.0-2.2); BILIRUBIN,TOTAL 0.8 mg/dL (0.2-1.0); CALCIUM 8.6 mg/dL (8.5-10.3); CREATININE 0.7 mg/dL (0.6-1.2); MAGNESIUM 1.8 mg/dL (1.7-2.8); TOTAL PROTEIN 6.4 g/dL (6.7-8.2)
[2019-03-24] MEDS: SUCRALFATE 1 GM/10 ML UDC PO SCH ×3 (06:43→15:52)
[2019-03-24] MEDS: CALCIUM CARBONATE CHEW 500 MG TABLET PO SCH (08:06)
[2019-03-24] MEDS: METOPROLOL SUCCINATE 25 MG TABLET PO SCH (08:06)
[2019-03-24] MEDS: PANTOPRAZOLE 40 MG TABLET PO SCH (08:06)
[2019-03-24] MEDS: oxyCODONE 5 MG TABLET PO PRN ×2 (08:06→16:17)
[2019-03-24] MEDS: cefOXitin 2 GM in SODIUM CHLORIDE 0.9% MINIBAG 100 ML IV SCH ×2 (08:14→15:52)
[2019-03-24] MEDS: SODIUM CHLORIDE FLUSH 0.9% 10 ML SYRINGE IVP PRN (08:16)
[2019-03-24] MEDS: SODIUM CHLORIDE FLUSH 0.9% 10 ML SYRINGE IVP SCH (08:16)
[2019-03-24] MEDS: FUROSEMIDE 20 MG/2 ML VIAL IVP SCH (08:16)
[2019-03-24] MEDS: FAMOTIDINE 20 MG/2 ML VIAL IVP SCH (08:16)
[2019-03-24] MEDS ORDERED: hydroCHLOROthiazide 12.5 MG CAPSULE PO SCH (09:00)
[2019-03-24] MEDS ORDERED: LISINOPRIL 5 MG TABLET PO SCH (09:00)
[2019-03-24] MEDS ORDERED: LISINOPRIL 20 MG TABLET PO SCH (10:45)
[2019-03-24] MEDS ORDERED: hydroCHLOROthiazide 25 MG TABLET PO SCH (10:46)
[2019-03-24] MEDS ORDERED: HYDROmorphone 0.5 MG/0.5 ML SYRINGE IVP PRN (10:47)
--- NOTE | 2019-03-24 15:28 | Discharge Plan ---
Discharge Plan Problem Reviewed?: Yes Disposition: Home, Self Care Condition: Good Prescriptions: Oxycodone HCl/Acetaminophen [Percocet 10-325 mg Tablet] 1 each PO Q6HR PRN #20 tablet PRN Reason: Pain Lisinopril/Hydrochlorothiazide [Lisinopril-Hctz 20-25 mg Tab] 1 each PO DAILY #30 tablet Metoprolol Succinate [Toprol Xl] 25 mg PO BID #60 tablet Pantoprazole [Protonix] 40 mg PO QDAC #30 tablet Polyethylene Glycol 3350 [Miralax] 17 gm PO DAILY PRN #30 packet PRN Reason: Bowel Protocol Diet: Regular Activity Restrictions: Do not lift more than pounds for 2 weeks Shower Restrictions: No Driving Restrictions: Yes (Do not drive while taking narcotic pain medications) Instruction Topics: Cefoxitin injection No Smoking: If you smoke, Please STOP! Call for help.
--- NOTE | 2019-03-24 15:28 | DISCHARGE SUMMARY ---
Discharge Summary Condition at Discharge: Good Discharge Disposition: 01 Home, Self Care - ALLERGIES Allergies/Adverse Reactions: Allergies Allergy/AdvReac Type Severity Reaction Status Date / Time Penicillins Allergy Unknown Verified 03/21/19 21:51 - MEDICATIONS Home Medications: Ambulatory Orders Medication Instructions Recorded Confirmed Aspirin [Aspirin EC] 81 mg PO DAILY 03/23/19 03/23/19 Multivitamin [Multivitamins] 1 tab PO DAILY 03/23/19 03/23/19 Simethicone [Gas Relief] 80 mg PO QID PRN 03/23/19 03/23/19 Acetaminophen [Tylenol] 325 mg PO Q4HR PRN tablet 03/24/19 Calcium Carbonate [Tums (Calcium 500 mg PO BID tablet 03/24/19 Carbonate 500mg)] Lisinopril/Hydrochlorothiazide 1 each PO DAILY #30 tablet 03/24/19 [Lisinopril-Hctz 20-25 mg Tab] Metoprolol Succinate [Toprol Xl] 25 mg PO BID #60 tablet 03/24/19 Oxycodone HCl/Acetaminophen 1 each PO Q6HR PRN #20 tablet 03/24/19 [Percocet 10-325 mg Tablet] Pantoprazole [Protonix] 40 mg PO QDAC #30 tablet 03/24/19 Polyethylene Glycol 3350 [Miralax] 17 gm PO DAILY PRN #30 packet 03/24/19 - LABS Result Diagrams: 03/24/19 05:15 03/24/19 05:15
--- NOTE | 2019-03-24 15:30 | DISCHARGE SUMMARY ---
"Discharge Summary Admit Date: 03/22/19 Discharge Date: 03/24/19 Discharging Provider: Doug Primary Care Provider: Danii Code Status: Attempt Resuscitation Condition at Discharge: Good Discharge Disposition: 01 Home, Self Care - DIAGNOSES Admission Diagnoses: Perforated Viscus Discharge Diagnoses with Status of Each Condition: Perforated Meckel's diverticulum with foreign body - Improved - HPI History of Present Illness: Klever is a pleasant 58-year-old gentleman who presented to the emergency room on the day of admission with abdominal pain.He was found to have a perforated vi scus and I was consulted for definitive management. - CONSULTS | PROCEDURES Procedures: Exploratory laparotomy with removal of foreign body and Meckel's divert iculectomy - HOSPITAL COURSE Hospital Course: Klever was taken from the emergency room immediately to the operating room where he underwent an urgent laparotomy. He was found to have a portion of a toothpick that had perforated Meckel's diverticulum. This had created an abscess approximately 3 feet from the ileocecal valve. The Meckel's diverticulum was removed and the toothpick retrieved.The abdomen was washed out and he was returned to the MedSurg unit for antibiotics and convalescence.On the first evening after surgery he was noted to have a significantly elevated blood pressure. I restarted his lisinopril/hydrochlorothiazide at his prior dose. It did not seem to help much. I consulted the hospitalist service and they have doubled his dose of Zestril and hydrochlorothiazide and added metoprolol XL. At this time his blood pressure is well controlled. He is also taking very minimal pain medication and walking the halls unassisted. He is discharged to his home in the care of his sister and family.Been afebrile for more than 24 hours. - ALLERGIES Allergies/Adverse Reactions: Allergies Allergy/AdvReac Type Severity Reaction Status Date / Time Penicillins Allergy Unknown Verified 03/21/19 21:51 - MEDICATIONS Home Medications: Ambulatory Orders Medication Instructions Recorded Confirmed Aspirin [Aspirin EC] 81 mg PO DAILY 03/23/19 03/23/19 Multivitamin [Multivitamins] 1 tab PO DAILY 03/23/19 03/23/19 Simethicone [Gas Relief] 80 mg PO QID PRN 03/23/19 03/23/19 Acetaminophen [Tylenol] 325 mg PO Q4HR PRN tablet 03/24/19 Calcium Carbonate [Tums (Calcium 500 mg PO BID tablet 03/24/19 Carbonate 500mg)] Lisinopril/Hydrochlorothiazide 1 each PO DAILY #30 tablet 03/24/19 [Lisinopril-Hctz 20-25 mg Tab] Metoprolol Succinate [Toprol Xl] 25 mg PO BID #60 tablet 03/24/19 Oxycodone HCl/Acetaminophen 1 each PO Q6HR PRN #20 tablet 03/24/19 [Percocet 10-325 mg Tablet] Pantoprazole [Protonix] 40 mg PO QDAC #30 tablet 03/24/19 Polyethylene Glycol 3350 [Miralax] 17 gm PO DAILY PRN #30 packet 03/24/19 Home Medications Other | Comments: Please remember to take a stool softener such as MiraLAX or Dulcolax each time you use narcotic pain medications - PHYSICAL EXAM AT DISCHARGE General Appearance: positive: No acute distress, Alert Eyes Bilateral: positive: Normal inspection, PERRL, EOMI ENT: positive: ENT inspection nml, Pharynx nml, No signs of dehydration Neck: positive: Thyroid nml, No JVD, Trachea midline Cardiovascular: positive: Regular rate & rhythm, No murmur Peripheral Pulses: positive: 1+ Abdomen: positive: Nml bowel sounds, No distention, Other (Wound is clean and dry and intact. The abdomen is appropriately tender around the incision.) Back: negative: CVA tenderness (R), CVA tenderness (L) Skin: positive: Color nml, No rash, Warm, Dry Neurologic/Psychiatric: positive: Oriented x3, CN's nml (2-12), Motor nml, Sensation nml, Mood/affect nml - LABS Result Diagrams: 03/24/19 05:15 03/24/19 05:15 - FOLLOW UP Follow Up: Follow-up with general surgery clinic in 2 weeks for a postop visit Follow-up with Dr. Foy within 1 month for management of hypertension"
[2019-03-24 18:31] VITALS: BP 172/86
== END 2019-03-24 17:15 | disposition home or self-care (01) | DRG 330 ==
LOC: ED 21:35 → SDS 03-22 07:15 → MS2 03-22 09:40
PROVIDERS: ADMIT Surgery; ATTEND Surgery
PROC: 0DBB0ZZ Excision of Ileum, Open Approach (ICD-10-PCS; principal; 2019-03-22 07:45)
DX: S36.438A Laceration of other part of small intestine, initial encounter (principal); K63.0 Abscess of intestine; T18.3XXA Foreign body in small intestine, initial encounter; Q43.0 Meckel's diverticulum (displaced) (hypertrophic); I10 Essential (primary) hypertension; K21.9 Gastro-esophageal reflux disease without esophagitis; T50.996A Underdosing of other drugs, medicaments and biological substances, initial encounter
CPT/HCPCS: 36415; 74177; 80053; 81001; 83690; 83735; 85025; 96361; 96365; 96375; 96376; 99284; A9270; J0131; J1170; J7120; Q9967; 80048; 81003; 87086; 99285

== ENCOUNTER 2020-10-16 17:06 | Outpatient (CLI) | payer OTHER ==
--- NOTE | 2020-10-16 18:53 | XRAY Report ---
PROCEDURE: Elbow 3 View LT INDICATIONS: UNSPECIFIED FALL TECHNIQUE: 3 views of the elbow were acquired. COMPARISON: None FINDINGS: Bones: Ulnar fracture through the base of the olecranon process. Fracture fragment is placed proximal ly. Soft tissues: No elbow joint effusion. No suspicious soft tissue calcifications. IMPRESSION: Proximal ulnar fracture through the base of the olecranon process. Reviewed by: Fanny Rhoades MD, PhD on 10/16/2020 5:52 PM [place] Approved by: Fanny Rhoades MD, PhD on 10/16/2020 5:52 PM AKST Station ID: [id number]
== END 2020-10-16 23:59 | disposition home or self-care (01) ==
LOC: DI.N 17:06
PROVIDERS: ATTEND Nurse Practitioner
DX: S52.022A Displaced fracture of olecranon process without intraarticular extension of left ulna, initial encounter for closed fracture (principal); W19.XXXA Unspecified fall, initial encounter

== ENCOUNTER 2020-10-20 06:13 | Day surgery (SDC) | payer OTHER ==
[2020-10-20] MEDS ORDERED: ceFAZolin 2 GM/50 ML 2 GM/50 ML BAG IV ONE (06:26)
[2020-10-20] MEDS ORDERED: CELECOXIB 100 MG CAPSULE PO ONE (06:26)
[2020-10-20] MEDS ORDERED: GABAPENTIN 400 MG CAPSULE ONE (06:26)
[2020-10-20] MEDS ORDERED: ACETAMINOPHEN 1,000 MG/100 ML 100 ML IV ONE (06:27)
[2020-10-20] MEDS ORDERED: MIDAZOLAM 2 MG/2 ML VIAL ONE (07:05)
[2020-10-20] MEDS ORDERED: fentaNYL 100 MCG/2 ML VIAL ONE (07:05)
[2020-10-20] MEDS ORDERED: ROPIVACAINE 0.5% PF 20 ML AMPULE ONE ×2 (07:05→07:11)
[2020-10-20] MEDS ORDERED: PROPOFOL 200 MG/20 ML VIAL IVP ONE (07:06)
[2020-10-20] MEDS ORDERED: LIDOCAINE-MPF 2% 5 ML VIAL ONE (07:06)
[2020-10-20] MEDS ORDERED: LACTATED RINGERS 1,000 ML IV ONE ×2 (07:10→11:08)
[2020-10-20] MEDS ORDERED: ROCURONIUM 50 MG/5 ML VIAL ONE (07:16)
--- NOTE | 2020-10-20 07:33 | ANESTHESIA ---
Pre-Anesthesia VS, & Labs - Diagnosis Fx L elbow - Procedure ORIF L elbow Vital Signs: Temp Pulse Resp BP Pulse Ox 37.7 C 70 16 157/70 H 97 10/20/20 06:30 10/20/20 06:30 10/20/20 06:30 10/20/20 06:30 10/20/20 06:30 Height: 6 ft Weight (kg): 142.9 kg Body Mass Index: 42.7 BMI Classification: Morbidly Obese - NPO >8 hours - Lab Results Current Lab Results: Laboratory Tests 10/20/20 06:51: POC Whole Bld Glucose 117 H Lab results reviewed: Yes Home Medications and Allergies Active Medications Cefazolin Sodium 3 gm/ Sodium (Chloride) 100 mls @ 200 mls/hr IV ONCE ONE Stop: 10/20/20 08:29 Aspirin [Aspirin EC] 81 mg PO DAILY 03/23/19 Multivitamin [Multivitamins] 1 tab PO DAILY 03/23/19 Simethicone [Gas Relief] 80 mg PO QID PRN 03/23/19 Allergies/Adverse Reactions: Allergies Allergy/AdvReac Type Severity Reaction Status Date / Time Penicillins Allergy Unknown Verified 03/21/19 21:51 Anes History & Medical History - Anesthetic History Anesthesia Complications: reports: No previous complications Family history of Anesthesia Complications: Denies Family history of Malignant Hyperthermia: Denies - Medical History Cardiovascular: reports: Hypertension, Murmur Pulmonary: reports: None Gastrointestinal: reports: GERD Urinary: reports: None Neuro: reports: None Musculoskeletal: reports: None Endocrine/Autoimmune: reports: None Skin: reports: None Smoking Status: Current every day smoker Psychosocial: reports: Alcohol (rare) History of Cancer?: No Exam General: Alert, Oriented x3, Cooperative Dental: WNL Mouth Opening: Greater than 4 Fingerbreadths Neck Mobility: Normal Mallampati classification: II Thyromental Distance: 4-6 cm Respiratory: Lungs clear, Normal breath sounds, No respiratory distress Cardiovascular: Regular rate Neurological: Normal speech Mental/Cognitive Status: Alert/Oriented X3, Normal for patient Cognitive Status: Within normal limits Plan Anesthesia Type: General, Supraclavicular Block Consent for Procedure(s) Verified and Reviewed: Yes Code Status: Attempt Resuscitation ASA classification: 2-Mild systemic disease Is this case an emergency?: No
[2020-10-20 07:37] LABS: C. PNEUMONIAE- RESP PCR PANEL NOT DETECTED
[2020-10-20] MEDS ORDERED: BACITRACIN ZINC OINT 1 PACKET TOP ONE (07:52)
[2020-10-20] MEDS ORDERED: ceFAZolin 3 GM in SODIUM CHLORIDE 0.9% 100ML 100 ML IV ONE (08:00)
[2020-10-20] MEDS ORDERED: ePHEDrine 50 MG/ML VIAL IVP ONE (08:30)
[2020-10-20] MEDS ORDERED: DEXAMETHASONE 4 MG/ML VIAL ONE (08:51)
[2020-10-20] MEDS ORDERED: BACITRACIN ZINC OINT 14 GM TOP ONE (10:10)
--- NOTE | 2020-10-20 10:14 | OPERATIVE REPORT ---
Operative Report - General Procedure Date: 10/20/20 Planned Procedure: Open reduction internal fixation left olecranon Pre-Op Diagnosis: Displaced, closed, left olecranon fracture Procedure Performed: Open reduction internal fixation left olecranon fracture using a [employer] olecranon locking plate. Post Op Diagnosis: Same as preop diagnosis - Procedure Note Primary Surgeon: Joe Gallegos MD Secondary Surgeon: Alejandro MAIN Anesthesia Provider: Skye Blandon Anesthesia Technique: General ET tube, Regional block Estimated Blood Loss (mL): 75 Indications: Displaced olecranon fracture left elbow, work-related injury Findings: Displaced, mildly comminuted olecranon fracture left elbow Complications: None noted - Other Other Information/Narrative: Is the patient has a rather large body habitus. He was brought to the operating room table. He was placed in the supine position with the left arm over an arm extension table. A nonsterile tourniquet was applied over cast padding to the proximal left arm. The left upper extremity was prepped and draped in a sterile manner in the usual fashion. The C-arm image intensifier was draped with a sterile drape. A timeout procedure was performed by the entire operating room team and all were in agreement. The left upper extremity was exsanguinated with a rubber bandage. The pneumatic tourniquet was elevated to 200 mmHg. A midline posterior longitudinal incision was made. Full-thickness flaps were achieved. The fracture was displaced and the fracture hematoma was entered and evacuated with curette, rondure and saline lavage. 2 K wires were placed across the fracture as the fracture was manually reduced with bone pointed clamps. The [employer] locking plate was applied so at least 4 screws could be obtained distally. The K wires acted as joysticks to further manipulate the fracture. The oval hole in the distal plate was filled with a 3.5 cortical screw in an eccentric fashion to help achieve subsequent compression at fracture site. The proximal screw was inserted, 2.7. This was a approximately 70 mm screw to achieve compression additional screws were inserted into the coronoid region. Care was taken to avoid any intra- articular screw placement. Cancellous screws were used proximally, partially threaded. Good fixation was achieved with the olecranon plate. The intraoperative x-ray showed good alignment of internal fixation and fracture. The elbow moved well with flexion and extension as well as rotation and there was no crepitus or impingement to motion. The tourniquet was deflated after approximately an hour. Hemostasis was achieved with electrocautery. The subcutaneous tissue was closed with 0 Vicryl. The skin was closed with a 3-0 Monocryl subcuticular suture. Dermabond was applied to the skin incision. A well-padded long-arm fiberglass splint with the elbow just short of 90 degrees of flexion was applied. He tolerated procedure well. A physician special event assistant was utilized during the procedure to facilitate exposure, protection of vital structures, facilitate reduction and insertion of internal fixation as well as closure and splinting
[2020-10-20] MEDS ORDERED: GLYCOPYRROLATE 1 MG/5 ML VIAL ONE (10:38)
[2020-10-20] MEDS ORDERED: NEOSTIGMINE 1 MG/1 ML 10 ML MDV ONE (10:38)
[2020-10-20] MEDS ORDERED: HYDROcod/ACETAM 5/325 MG TABLET PO PRN (10:45)
[2020-10-20] MEDS ORDERED: HYDROcod/ACETAM 10 MG/325 MG TABLET PO PRN (10:45)
[2020-10-20] MEDS ORDERED: KETOROLAC 15 MG/ML VIAL IVP STA (10:45)
[2020-10-20] MEDS ORDERED: oxyCODONE 5 MG TABLET PO PRN (10:45)
[2020-10-20] MEDS ORDERED: NALOXONE 0.4 MG/ML VIAL IVP PRN (11:07)
[2020-10-20] MEDS ORDERED: METOCLOPRAMIDE 10 MG/2 ML VIAL IVP PRN (11:07)
[2020-10-20] MEDS ORDERED: fentaNYL 100 MCG/2 ML VIAL IVP PRN (11:07)
[2020-10-20] MEDS ORDERED: ePHEDrine 50 MG/ML VIAL IVP PRN (11:07)
[2020-10-20] MEDS ORDERED: ATROPINE ABBOJECT 1 MG/10 ML SYRINGE IVP PRN (11:07)
[2020-10-20] MEDS ORDERED: HYDROmorphone 0.5 MG/0.5 ML SYRINGE IVP PRN (11:07)
[2020-10-20] MEDS ORDERED: MORPHINE 2 MG/ML CARPUJECT IVP PRN (11:07)
[2020-10-20] MEDS ORDERED: ONDANSETRON 4 MG/2 ML VIAL IVP PRN (11:07)
[2020-10-20] MEDS ORDERED: LACTATED RINGERS 1,000 ML IV SCH (12:00)
[2020-10-20] MEDS ORDERED: oxyCODONE 5 MG TABLET ONE (12:01)
[2020-10-20 12:04] VITALS: BP 136/72
--- NOTE | 2020-10-20 16:03 | XRAY Report ---
PROCEDURE: OR C-Arm Procedure INDICATIONS: ORIF OLECRANON TECHNIQUE: 2 intraoperative views of the elbow were obtained. COMPARISON: X-ray elbow 10/16/2020 FINDINGS: Intraoperative ORIF images demonstrate fixation of previously identified olecranon fracture. There is good anatomic alignment and hardware is intact. IMPRESSION: Intraoperative olecranon ORIF as above. Reviewed by: Winsome De La Cruz MD on 10/20/2020 4:02 PM PST Approved by: Winsome De La Cruz MD on 10/20/2020 4:02 PM PST Station ID: [id number]
== END 2020-10-20 06:14 | disposition home or self-care (01) ==
LOC: SDS 06:13
PROVIDERS: ATTEND Orthopaedic Surgery
DX: S52.032A Displaced fracture of olecranon process with intraarticular extension of left ulna, initial encounter for closed fracture (principal); W01.0XXA Fall on same level from slipping, tripping and stumbling without subsequent striking against object, initial encounter; Y93.89 Activity, other specified; Y92.512 Supermarket, store or market as the place of occurrence of the external cause; Y99.0 Civilian activity done for income or pay; I10 Essential (primary) hypertension; E66.01 Morbid (severe) obesity due to excess calories; Z68.41 Body mass index [BMI] 40.0-44.9, adult; F32.9 Major depressive disorder, single episode, unspecified; F17.210 Nicotine dependence, cigarettes, uncomplicated; Z20.822 Contact with and (suspected) exposure to COVID-19
CPT/HCPCS: 0202U; 24685; A9270; C1713; J0131; J0690; J7120

== ENCOUNTER 2020-12-15 07:00 | Outpatient (CLI) | payer OTHER ==
--- NOTE | 2020-12-15 17:17 | XRAY Report ---
PROCEDURE: Elbow 2 View LT INDICATIONS: DISPLACED OLECRANON FRACTURE, LEFT TECHNIQUE: 2 views of the elbow were acquired. COMPARISON: X-ray elbow 10/16/2020 FINDINGS: Bones: ORIF of olecranon fracture is present. Hardware is intact without evidence of hardware fractur e. Fracture lucency is visible. There is good anatomic alignment. No suspicious bony lesions. Soft tissues: No elbow joint effusion. No suspicious soft tissue calcifications. IMPRESSION: Olecranon ORIF. Reviewed by: Winsome De La Cruz MD on 12/15/2020 5:15 PM PDT Approved by: Winsome De La Cruz MD on 12/15/2020 5:15 PM PDT Station ID: [id number]
== END 2020-12-15 23:59 | disposition home or self-care (01) ==
LOC: DI.N 07:00
PROVIDERS: ATTEND Physician Assistant
DX: S52.022D Displaced fracture of olecranon process without intraarticular extension of left ulna, subsequent encounter for closed fracture with routine healing (principal)

== ENCOUNTER 2021-05-21 11:43 | Outpatient (CLI) | payer OTHER ==
[2021-05-21 17:54] LABS: BASOPHILS # (AUTO) 0.1 10^3/uL (0.0-0.1); BASOPHILS % (AUTO) 1.6 %; EOSINOPHILS # (AUTO) 0.4 10^3/uL (0.0-0.7); EOSINOPHILS % (AUTO) 6.4 %; HCT - HEMATOCRIT 44.4 % (42.0-52.0); HGB - HEMOGLOBIN 14.2 g/dL (14.0-18.0); LYMPHOCYTES # (AUTO) 1.5 10^3/uL (1.5-3.5); LYMPHOCYTES % (AUTO) 22.5 %; MEAN CORPUSCULAR HEMOGLOBIN 29.9 pg (27.0-31.0); MEAN CORPUSCULAR VOLUME 93.5 fL (80.0-94.0); MEAN PLATELET VOLUME 9.8 fL (7.4-11.4); MONOCYTES # (AUTO) 0.6 10^3/uL (0.0-1.0); MONOCYTES % (AUTO) 8.9 %; NEUTROPHILS # (AUTO) 4.1 10^3/uL (1.5-6.6); NEUTROPHILS % (AUTO) 60.5 %; PLT - PLATELET COUNT 408 10^3/uL (130-450); RED BLOOD COUNT 4.75 10^6/uL (4.70-6.10); RED CELL DISTRIBUTION WIDTH 14.4 % (12.0-15.0); WHITE BLOOD COUNT 6.8 x10^3/uL (4.8-10.8)
[2021-05-21 18:09] LABS: BILIRUBIN,URINE NEGATIVE (NEGATIVE); GLUCOSE, URINE (UA) NEGATIVE (NEGATIVE); KETONES,URINE (UA) NEGATIVE (NEGATIVE); LEUKOCYTE ESTERASE, URINE NEGATIVE (NEGATIVE); NITRITE,URINE NEGATIVE (NEGATIVE); OCCULT BLOOD,URINE NEGATIVE (NEGATIVE); PH,URINE 5.5 PH (5.0-7.5); PROTEIN,URINE NEGATIVE (NEGATIVE); UROBILINOGEN,URINE 0.2 (NORMAL) E.U./dL (NORMAL)
[2021-05-21 18:19] LABS: ALBUMIN 4.3 g/dL (3.2-5.5); ALBUMIN/GLOBULIN RATIO 1.2 (1.0-2.2); ALKALINE PHOSPHATASE 98 IU/L (42-121); ALT ALANINE AMINOTRANSFERASE 32 IU/L (10-60); AST ASPARTATE AMINOTRANSFERASE 27 IU/L (10-42); BILIRUBIN,TOTAL 0.7 mg/dL (0.2-1.0); BUN - BLOOD UREA NITROGEN 19 mg/dL (6-20); CALCIUM 9.6 mg/dL (8.5-10.3); CARBON DIOXIDE - CO2 28 mmol/L (21-32); CHLORIDE 100 mmol/L (101-111); CHOL/HDL RATIO 4.9 (<5.0); CHOLESTEROL 171 mg/dL; CREATININE 0.7 mg/dL (0.6-1.2); GFR - MDRD 115 (>89); GLUCOSE 104 mg/dL (70-100); HDL CHOLESTEROL 35 mg/dL; LDL CHOLESTEROL,CALCULATED 106 mg/dL; SODIUM 136 mmol/L (135-145); TOTAL PROTEIN 7.9 g/dL (6.7-8.2); TRIGLYCERIDES 152 mg/dL; VLDL CHOLESTEROL 30 mg/dL
[2021-05-21 18:26] LABS: CLARITY,URINE CLEAR (CLEAR)
[2021-05-21 19:13] LABS: BACTERIA,URINE None Seen /HPF (None Seen); RBC,URINE 0-5 /HPF (0-5); SQUAMOUS EPITHELIAL CELL,UR NONE SEEN (<= Few); WBC,URINE 0-3 /HPF (0-3)
[2021-05-21 19:14] LABS: MUCUS,URINE Few Strands
== END 2021-05-21 23:59 | disposition home or self-care (01) ==
LOC: LAB.WCP 11:43
PROVIDERS: ATTEND Nurse Practitioner
DX: I10 Essential (primary) hypertension (principal); Z13.220 Encounter for screening for lipoid disorders; Z12.5 Encounter for screening for malignant neoplasm of prostate
CPT/HCPCS: 36415; 80053; 80061; 81001; 83721; 84153; 85025; 87086

== ENCOUNTER 2022-05-21 15:20 | Observation (INO) | payer BC, OTHER ==
--- NOTE | 2022-05-21 15:27 | ED Physician Documentation ---
PD HPI CHEST PAIN - Stated complaint Stated Complaint: HEART PALPITATION/DIZINESS - History obtained from History obtained from: Patient - History of Present Illness Timing - onset: How many days ago (2-3) Timing - onset during: Rest, Light activity Timing - duration: Days (2-3 (Onset early Friday overnight the morning of feeling fast and irregular heartbeat associated with lightheadedness and some shortness of breath. No chest pain. He states he had had similar episodes periodically lasting 5 to 10 minutes but not frequently. Current episode has lasted now 2-3 days) Timing - details: Gradual onset, Still present Quality: No: Pressure, Tightness, Sharp Location: Substernal, Left chest Radiation: No: Neck, Back Improved by: No: Rest Associated symptoms: Shortness of air, Nausea, Feeling faint / dizzy, Palpitations Similar symptoms before: No diagnosis Recently seen: Not recently seen Review of Systems Constitutional: denies: Fever, Chills Nose: denies: Rhinorrhea / runny nose, Congestion Throat: denies: Sore throat Cardiac: reports: Palpitations. denies: Chest pain / pressure, Pedal edema, Calf pain Respiratory: reports: Dyspnea. denies: Cough, Wheezing GI: denies: Abdominal Pain, Nausea, Vomiting, Diarrhea Neurologic: reports: Generalized weakness, Near syncope. denies: Focal weakness, Numbness, Syncope, Altered mental status, Headache PD PAST MEDICAL HISTORY - Past Medical History Cardiovascular: Hypertension, Murmur Respiratory: None Neuro: None Endocrine/Autoimmune: None GI: GERD : None HEENT: None Psych: None Musculoskeletal: None Derm: None - Past Surgical History Past Surgical History: No - Present Medications Home Medications: Ambulatory Orders Medication Instructions Recorded Confirmed Aspirin [Aspirin EC] 81 mg PO DAILY 03/23/19 03/23/19 Multivitamin [Multivitamins] 1 tab PO DAILY 03/23/19 03/23/19 Simethicone [Gas Relief] 80 mg PO QID PRN 03/23/19 03/23/19 Acetaminophen [Tylenol] 325 mg PO Q4HR PRN tablet 03/24/19 Calcium Carbonate [Tums (Calcium 500 mg PO BID tablet 03/24/19 Carbonate 500mg)] Lisinopril/Hydrochlorothiazide 1 each PO DAILY #30 tablet 03/24/19 [Lisinopril-Hctz 20-25 mg Tab] Metoprolol Succinate [Toprol Xl] 25 mg PO BID #60 tablet 03/24/19 Oxycodone HCl/Acetaminophen 1 each PO Q6HR PRN #20 tablet 03/24/19 [Percocet 10-325 mg Tablet] Pantoprazole [Protonix] 40 mg PO QDAC #30 tablet 03/24/19 polyethylene glycoL 3350 [Miralax] 17 gm PO DAILY PRN #30 packet 03/24/19 oxyCODONE [Roxicodone] 5 mg PO Q4-6H #30 tablet 10/20/20 - Allergies Allergies/Adverse Reactions: Allergies Allergy/AdvReac Type Severity Reaction Status Date / Time Penicillins Allergy Unknown Verified 03/21/19 21:51 - Living Situation Living Situation: reports: Alone Living Arrangement: reports: At home - Social History Does the pt smoke?: Yes Smoking Status: Current every day smoker Does the pt drink ETOH?: No Does the pt have substance abuse?: No - Family History Family history: reports: CAD - Immunizations Immunizations are current?: Yes - POLST Patient has POLST: No POLST Status: Full Code PD ED PE NORMAL - Vitals Vital signs reviewed: Yes - General General: Alert and oriented X 3, No acute distress, Well developed/nourished - HEENT HEENT: Moist mucous membranes, Pharynx benign - Neck Neck: Supple, no meningeal sign, No adenopathy - Cardiac Cardiac: No murmur, No rub. No: RRR (Irregular and tachycardic with rate 1 30-1 40) - Respiratory Respiratory: No respiratory distress, Clear bilaterally - Abdomen Abdomen: Soft, Non tender - Derm Derm: Normal color, Warm and dry - Extremities Extremities: No tenderness to palpate, Normal ROM s pain, No edema, No calf tenderness / cord - Neuro Neuro: Alert and oriented X 3, No motor deficit, No sensory deficit, Normal speech Eye Opening: Spontaneous Motor: Obeys Commands Verbal: Oriented GCS Score: 15 Results - Vitals Vitals: Vital Signs - 24 hr 05/21/22 05/21/22 05/21/22 15:27 16:20 16:49 Temperature 37.2 C Heart Rate 131 H 129 H 101 H Respiratory 19 16 121 H Rate Blood Pressure 115/60 118/71 O2 Saturation 98 96 Oxygen O2 Source Room air - EKG (time done) 15:30 Rate: Rate (enter#) (131) Rhythm: Atrial fibrillation [place]: Normal QRS: Normal Ischemia: Normal ST segments. No: ST elevation c/w ischemia, ST depression - Labs Labs: Laboratory Tests 05/21/22 05/21/22 05/21/22 15:57 15:57 15:57 WBC 10.7 RBC 4.91 Hgb 14.7 Hct 43.8 MCV 89.2 MCH 29.9 MCHC 33.6 RDW 15.0 Plt Count 425 MPV 8.7 Neut # (Auto) 6.5 Lymph # (Auto) 2.4 [place] # (Auto) 0.8 Eos # (Auto) 0.8 H Baso # (Auto) 0.2 H Absolute Nucleated RBC 0.00 Nucleated RBC % 0.0 Sodium 139 Potassium 3.8 Chloride 105 Carbon Dioxide 24 Anion Gap 10.0 BUN 33 H Creatinine 1.0 Estimated GFR (MDRD) 76 L Glucose 133 H Calcium 9.5 Magnesium 2.0 Total Bilirubin 0.2 AST 24 ALT 28 Alkaline Phosphatase 104 Troponin I High Sens B-Natriuretic Peptide 226 H Total Protein 7.5 Albumin 3.9 Globulin 3.6 Albumin/Globulin Ratio 1.1 Lipase 38 05/21/22 17:02 WBC RBC Hgb Hct MCV MCH MCHC RDW Plt Count MPV Neut # (Auto) Lymph # (Auto) [place] # (Auto) Eos # (Auto) Baso # (Auto) Absolute Nucleated RBC Nucleated RBC % Sodium Potassium Chloride Carbon Dioxide Anion Gap BUN Creatinine Estimated GFR (MDRD) Glucose Calcium Magnesium Total Bilirubin AST ALT Alkaline Phosphatase Troponin I High Sens 6.0 B-Natriuretic Peptide Total Protein Albumin Globulin Albumin/Globulin Ratio Lipase - Rads (name of study) chest xray Radiology: Prelim report reviewed (nbo acute process), See rad report PD MEDICAL DECISION MAKING - ED course Complexity details: reviewed results ( pharmacy. Chest x-ray and BNP are normal without any signs of heart failure related to the fast A. fib. Basic electrolytes are good. We did give doses of metoprolol IV since he is already on a beta-yuri for blood pressure. He did have stepwise reduction in the A. fib rate though still afib), re-evaluated patient, considered differential (New onset atrial fibrillation with symptoms greater than 48 hours. Intermittent episodes in the past for just a few minutes at a time. No prior evaluation/diagnosis. We will aim for rate control and initiate anticoagulation. Will eval signs of heart failure with BNP/ chest x-ray, ck lytes/tsh), d/w patient Departure - Departure Disposition: ED Place in Observation Clinical Impression: Atrial fibrillation with rapid ventricular response Condition: Stable
[2022-05-21] MEDS ORDERED: METOPROLOL 5 MG/5 ML VIAL IVP STA ×3 (15:48→17:39)
[2022-05-21] MEDS ORDERED: ENOXAPARIN 100 MG/ML SYRINGE SUBQ STA (15:51)
[2022-05-21 16:04] LABS: BASOPHILS # (AUTO) 0.2 10^3/uL (0.0-0.1); BASOPHILS % (AUTO) 1.5 %; EOSINOPHILS # (AUTO) 0.8 10^3/uL (0.0-0.7); EOSINOPHILS % (AUTO) 7.2 %; HCT - HEMATOCRIT 43.8 % (42.0-52.0); HGB - HEMOGLOBIN 14.7 g/dL (14.0-18.0); LYMPHOCYTES # (AUTO) 2.4 10^3/uL (1.5-3.5); LYMPHOCYTES % (AUTO) 22.8 %; MEAN CORPUSCULAR HEMOGLOBIN 29.9 pg (27.0-31.0); MEAN CORPUSCULAR HGB CONC 33.6 g/dL (32.0-36.0); MEAN CORPUSCULAR VOLUME 89.2 fL (80.0-94.0); MEAN PLATELET VOLUME 8.7 fL (7.4-11.4); MONOCYTES # (AUTO) 0.8 10^3/uL (0.0-1.0); MONOCYTES % (AUTO) 7.7 %; NEUTROPHILS # (AUTO) 6.5 10^3/uL (1.5-6.6); NEUTROPHILS % (AUTO) 60.4 %; PLT - PLATELET COUNT 425 10^3/uL (130-450); RED BLOOD COUNT 4.91 10^6/uL (4.70-6.10); WHITE BLOOD COUNT 10.7 x10^3/uL (4.8-10.8)
[2022-05-21 16:18] LABS: ALBUMIN 3.9 g/dL (3.2-5.5); ALBUMIN/GLOBULIN RATIO 1.1 (1.0-2.2); BILIRUBIN,TOTAL 0.2 mg/dL (0.2-1.0); CALCIUM 9.5 mg/dL (8.5-10.3); POTASSIUM 3.8 mmol/L (3.5-5.0); TOTAL PROTEIN 7.5 g/dL (6.7-8.2)
[2022-05-21] MEDS ORDERED: SODIUM CHLORIDE FLUSH 0.9% 10 ML SYRINGE IVP PRN (16:35)
[2022-05-21] MEDS ORDERED: ONDANSETRON ODT 4 MG TABLET TL PRN (16:35)
[2022-05-21] MEDS ORDERED: ACETAMINOPHEN 325 MG TABLET PO PRN (16:35)
[2022-05-21] MEDS ORDERED: ONDANSETRON 4 MG/2 ML VIAL IVP PRN (16:35)
[2022-05-21] MEDS ORDERED: oxyCODONE 5 MG TABLET PO PRN (16:35)
[2022-05-21] MEDS ORDERED: diltiaZEM INJ 5 MG/ML VIAL IVP STA (16:40)
[2022-05-21] MEDS ORDERED: diltiaZEM CD 120 MG CAPSULE PO STA (16:41)
--- NOTE | 2022-05-21 16:41 | XRAY Report ---
PROCEDURE: Chest 1 View X-Ray INDICATIONS: Chest pain TECHNIQUE: One view of the chest was acquired. COMPARISON: None. FINDINGS: Surgical changes and devices: None. Lungs and pleura: No pleural effusions or pneumothorax. Lungs are clear. Mediastinum: Mediastinal contours appear normal. Heart size is normal. Bones and chest wall: No suspicious bony lesions. Overlying soft tissues appear unremarkable. IMPRESSION: No acute finding. Reviewed by: Roby Christopher MD on 05/21/2022 4:40 PM PDT Approved by: Roby Christopher MD on 05/21/2022 4:40 PM PDT Station ID: [id number]
--- NOTE | 2022-05-21 16:48 | HISTORY & PHYSICAL EXAMINATION ---
Chief Complaint - Chief Complaint Chief Complaint: Chest tightness and shortness of breath History of Present Illness - Admitted From Admitted From:: Home via emergency room - History Obtained From Records Reviewed: [facility] History obtained from: Patient and Dr. Landis Exam Limitations: None - History of Present Illness HPI Comment/Other: 62-year-old white male who has no major medical illness other than hypertension. He last saw his primary care provider close to a year ago. He is about to run out of one of his blood pressure medications is good and need a refill next week. He notes that he has had palpitations off and on in the years past but nothing that was severe and nothing that lasted for very long. Minutes at most. He was told he may have atrial fib a year ago and never really followed up. He was told they would "have to catch it while it was happening" and then they could move forward. They even mentioned a Holter but it was never done. 2 days ago he began having increased frequency and severity of palpitations. He thinks it started early Friday morning, in the housekeeper cleaning cooking hours. It is associated with lightheadedness and some shortness of breath but no chest pain. This is the longest he is ever felt this way. Prior to this, he has had no change in cardiovascular endurance. He came to the emergency room where blood pressure was 115/60. O2 sat was 98% on room air. Respiratory rate is 19. Heart rate was 131. He received 2 doses of Lopressor in the emergency room and heart rate is still in the 130s. 1 was at 3:48 PM. The second 1 was at 4:31 PM. It is now 4:43 and ER doctor presenting the patient as observation status for new onset A. fib. I have asking that a D-dimer, TSH and troponin be done on the patient. EKG does not have any acute ST changes. Chest x-ray is negative for acute cardiopulmonary changes. Right before coming to [facility] at approximately 6:05 PM, he received another 5 mg of metoprolol and his heart rate is now 101. History - Past Medical History Cardiovascular: reports: Hypertension, Murmur Respiratory: reports: None Neuro: reports: None Endocrine/Autoimmune: reports: None GI: reports: GERD, Other (Perforated viscus with abscess due to toothpick 2019) : reports: Kidney stones HEENT: reports: None Psych: reports: None Musculoskeletal: reports: Other (Left olecranon fracture September 2020) Derm: reports: None MRSA Hx?: No - Past Surgical History General: reports: Other (Exploratory lap with removal of foreign body and Meckel's diverticulectomy March 2019) Ortho: reports: Other (ORIF left olecranon fracture September) - Family & Social History Family History Comment/Other: Mom at age 60 of cervical cancer. Dad at approximately 78 of a car accident and had BPH. 3 brothers . 1 of suicide, 1 of congestive heart failure from [place], 1 of questionable cancer. 3 brothers alive. One is had bypass surgery, diabetes, mental health issues. 2 sisters alive who are also "unhealthy "but cannot remember what of. 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 Has no history of alcohol abuse. Has no history of recreational substance abuse, specifically cocaine, heroin, LSD, methamphetamines, cannabis.Lives alone. Never . - Substance History Use: Uses substance without health or social issues: NONE Abuse: Recurrent use of substance despite neg consequences: NONE Dependence: Experiences withdrawal or developed tolerances: NONE - POLST Patient has POLST: No POLST Status: Full Code Meds/Allgy - Home Medications Home Medications: Ambulatory Orders Medication Instructions Recorded Confirmed Aspirin [Aspirin EC] 81 mg PO DAILY 03/23/19 03/23/19 Multivitamin [Multivitamins] 1 tab PO DAILY 03/23/19 03/23/19 Simethicone [Gas Relief] 80 mg PO QID PRN 03/23/19 03/23/19 Acetaminophen [Tylenol] 325 mg PO Q4HR PRN tablet 03/24/19 Calcium Carbonate [Tums (Calcium 500 mg PO BID tablet 03/24/19 Carbonate 500mg)] Lisinopril/Hydrochlorothiazide 1 each PO DAILY #30 tablet 03/24/19 [Lisinopril-Hctz 20-25 mg Tab] Metoprolol Succinate [Toprol Xl] 25 mg PO BID #60 tablet 03/24/19 Oxycodone HCl/Acetaminophen 1 each PO Q6HR PRN #20 tablet 03/24/19 [Percocet 10-325 mg Tablet] Pantoprazole [Protonix] 40 mg PO QDAC #30 tablet 03/24/19 polyethylene glycoL 3350 [Miralax] 17 gm PO DAILY PRN #30 packet 03/24/19 oxyCODONE [Roxicodone] 5 mg PO Q4-6H #30 tablet 10/20/20 - Allergies Allergies/Adverse Reactions: Allergies Allergy/AdvReac Type Severity Reaction Status Date / Time Penicillins Allergy Unknown Verified 03/21/19 21:51 Review of Systems - All Other Systems All Other Systems: reports: Reviewed and negative (13 point review of system was done. Positive only in cardiac. Also complains of occasional aches and pains because of standing on his feet. All else negative.) Prior Level of Functionality: Independent with activities of daily living. No use of durable medical equipment Exam - Vital Signs Reviewed Vital Signs: Yes Vital Signs: Vital Signs x48h Temp Pulse Resp BP Pulse Ox 05/21/22 16:20 129 H 16 118/71 96 05/21/22 15:27 37.2 C 131 H 19 115/60 98 - Physical Exam General Appearance: positive: No acute distress, Alert, Other (Heart rate now 101) Eyes Bilateral: positive: PERRL ENT: positive: No signs of dehydration Neck: positive: No JVD. negative: Stiff neck Respiratory: positive: No respiratory distress. negative: Wheezes, Rales, Rhonchi Cardiovascular: positive: Irregularly irregular. negative: Gallop/S4, Friction rub Peripheral Pulses: positive: 1+ Abdomen: positive: Non-tender, No organomegaly, Nml bowel sounds, No distention Skin: positive: Warm, Dry Extremities: positive: Full ROM, No pedal edema Neurologic/Psychiatric: positive: Oriented x3, CN's nml (2-12), Motor nml Conclusion/Plan - Problem List (1) Atrial fibrillation with RVR Conclusion/Plan: By history this patient appears to be having recurrent paroxysmal atrial fibrillation. Ongoing for a few years now. He has no signs and symptoms of trigger such as thyroid disease, CA. He has no reasons for a pulmonary embolism. 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 [id number] score is 1 and he is low to moderate risk for stroke and should be considered for antiplatelet therapy or anticoagulation. Has bled score is one- point and risk is 3.4%, has a relatively low risk for major bleeding. Plan: For academic sake check troponin and follow-up Check TSH Check D-dimer Mat screen for alcohol, cocaine, cannabis or methamphetamines Increase metoprolol from 25 mg at home to 50 mg daily and give first dose now Echocardiogram tomorrow (2) Hypertension Conclusion/Plan: In 2020, we were consulted for uncontrolled high blood pressure when he was admitted for his abdominal surgery. At that time he was noncompliant with his lisinopril with hydrochlorothiazide as well as metoprolol succinate. Pharmacy will verify medication refills and usage. He will be started on Cardizem CD for his rate control of his A. fib. Current blood pressure is controlled. Qualifiers: Hypertension type: primary hypertension Qualified Code(s): I10 - Essential (primary) hypertension (3) Hyperglycemia Conclusion/Plan: No history of diabetes. We will check A1c - Lab Results Lab results reviewed: Yes [place] Bones: 05/21/22 15:57 05/21/22 15:57 - Diagnostic Imaging Results Diagnostic Imaging Results: positive: Final report reviewed (Chest x-ray without acute cardiopulmonary process) - EKG Results EKG Interpreted Independently: No EKG Comparison: Changed from prior EKG EKG Findings: EKG is atrial fibrillation with rapid ventricular response and a rate of 131. No acute ST-T wave changes. When compared to telemetry in March 2019, the atrial fibrillation is new Core Measures - Anticipated LOS I expect patient to be DC'd or transferred within 96 hours.: Yes - DVT/VTE - Prophylaxis VTE/DVT Device ordered at admit?: Yes
[2022-05-21] MEDS ORDERED: DIGOXIN 500 MCG/2 ML AMP IVP STA (18:46)
[2022-05-21] MEDS: METOPROLOL SUCCINATE 50 MG TABLET PO SCH (18:50)
[2022-05-21] MEDS ORDERED: SODIUM CHLORIDE 0.9% 500 ML IV ONE (18:57)
[2022-05-21] MEDS: SODIUM CHLORIDE FLUSH 0.9% 10 ML SYRINGE IVP SCH ×2 (19:21→23:55)
[2022-05-21 19:31] LABS: MUDS CUTOFF CONCENTRATIONS CUTOFF CONC BELOW:
[2022-05-21 19:45] LABS: AMPHETAMINE SCREEN,URINE NEGATIVE (NEGATIVE); BARBITURATE SCREEN,UR NEGATIVE (NEGATIVE); BENZODIAZEPINES SCREEN, URINE NEGATIVE (NEGATIVE); COCAINE SCREEN URINE NEGATIVE (NEGATIVE); METHADONE SCREEN, URINE NEGATIVE (NEGATIVE); METHAMPHETAMINES SCREEN, URINE NEGATIVE (NEGATIVE); OPIATE SCREEN, URINE NEGATIVE (NEGATIVE); OXYCODONE SCREEN, URINE NEGATIVE (NEGATIVE); PROPOXYPHENE SCREEN, URINE NEGATIVE (NEGATIVE); THC CANNABINOID SCREEN, URINE NEGATIVE (NEGATIVE); TRICYCLIC ANTIDEPRESSANT,URINE NEGATIVE (NEGATIVE)
[2022-05-21] MEDS: APIXABAN 5 MG TABLET PO SCH (23:55)
[2022-05-22] MEDS ORDERED: LEVOTHYROXINE 75 MCG TABLET PO SCH (07:00)
[2022-05-22 08:46] LABS: ESTIMATED AVERAGE GLUCOSE 131 mg/dL (70-100); HEMOGLOBIN A1c% 6.2 % (4.27-6.07)
[2022-05-22] MEDS: METOPROLOL SUCCINATE 50 MG TABLET PO SCH (09:07)
[2022-05-22] MEDS: APIXABAN 5 MG TABLET PO SCH (09:07)
[2022-05-22] MEDS: SODIUM CHLORIDE FLUSH 0.9% 10 ML SYRINGE IVP SCH (10:43)
--- NOTE | 2022-05-22 10:50 | Discharge Plan ---
Discharge Plan Problem Reviewed?: Yes Disposition: Home, Self Care Condition: Stable Prescriptions: Quinapril/Hydrochlorothiazide [Accuretic 20-25 mg Tablet] 1 each PO DAILY #30 tablet Levothyroxine [Synthroid] 75 mcg PO QDAC #30 tablet Metoprolol Succinate [Toprol Xl] 50 mg PO DAILY #30 tablet Rivaroxaban [Xarelto] 20 mg PO DAILY #30 tablet Diet: Regular Activity Restrictions: No Restrictions Shower Restrictions: No Driving Restrictions: No Instruction Topics: Atrial Fibrillation Dc, Stroke Prevent Live W Atrial Fib, Rivaroxaban oral tablets Health Concerns: You presented to the emergency room with palpitations that have been ongoing for about 2 to 3 days. You have a long history of palpitations and have been told that you have probable atrial fibrillation but had never been able to "catch it" on an EKG before. This time we were able to show that you definitely have intermittent atrial fibrillation that can be quite fast. We slow down your heart rate. You converted to a regular rhythm called normal sinus rhythm. Because you go in and out of atrial fibrillation you have an increased risk of stroke. We have also started you on a blood thinner. Plan of Treatment: 1. Please see your primary care provider in the next 1 to 2 weeks. They will need to monitor your blood pressure, heart rate, and your reaction to the blood thinner pulse. 2. If the blood thinner pills are too expensive, they can change it to a pill called Coumadin. It is much less expensive but much more inconvenient to use. He will need blood test on a regular basis very frequently when he for start Coumadin, then he can go sometimes to once a month. 3. Please have your doctor refer you to your switch maker to see if you are a candidate for something called "ablation". This is where they would zap the area and source of your atrial fibrillation in the upper chambers of your heart. This would permanently take care of your atrial fibrillation so that you would be able to come off those medicines. Care Goals: To remain asymptomatic from atrial fibrillation and to reduce your risk of stroke Assessment: Patient states that he understands treatment plan, and care goals and will follow through with his primary care provider No Smoking: If you smoke, Please STOP! Call for help. Follow-up with: Nitza Bains ARNP [Primary Care Provider] -
[2022-05-22 11:16] VITALS: BP 120/65
--- NOTE | 2022-05-22 18:25 | DISCHARGE SUMMARY ---
Discharge Summary Admit Date: 05/21/22 Discharge Date: 05/22/22 Discharging Provider: Claudine Dickens MD Primary Care Provider: MANJULA Gardiner Code Status: Attempt Resuscitation Condition at Discharge: Stable Discharge Disposition: 01 Home, Self Care - DIAGNOSES Discharge Diagnoses with Status of Each Condition: 1. Paroxysmal atrial fibrillation with RVR 2. Hypertension 3. Hyperglycemia wiht glucose intolerance, new diagnosis 4. Hypothyroid, new diagnosis - HPI History of Present Illness: 62-year-old white male who has no major medical illness other than hypertension. He last saw his primary care provider close to a year ago. He is about to run out of one of his blood pressure medications and needs a refill next week. He notes that he has had palpitations off and on in the years past but nothing that was severe and nothing that lasted for very long. Minutes at most. He was told he may have atrial fib a year ago and never really followed up. He was told they would "have to catch it while it was happening" and then they could move forward. They even mentioned a Holter but it was never done. 2 days ago he began having increased frequency and severity of palpitations. He thinks it started early Friday morning, in the tire sorter hours. It is associated with lightheadedness and some shortness of breath but no chest pain. This is the longest he is ever felt this way. Prior to this, he has had no change in cardiovascular endurance. He came to the emergency room where blood pressure was 115/60. O2 sat was 98% on room air. Respiratory rate is 19. Heart rate was 131. He received 2 doses of Lopressor in the emergency room and heart rate is still in the 130s. 1 was at 3:48 PM. The second 1 was at 4:31 PM. It is now 4:43 and ER doctor presenting the patient as observation status for new onset A. fib. I have asking that a D-dimer, TSH and troponin be done on the patient. EKG does not have any acute ST changes. Chest x-ray is negative for acute cardiopulmonary changes. Right before coming to [facility] at approximately 6:05 PM, he received another 5 mg of metoprolol and his heart rate is now 101. - Past Medical History Cardiovascular: reports: Hypertension, Murmur Respiratory: reports: None Neuro: reports: None Endocrine/Autoimmune: reports: None GI: reports: GERD, Other (Perforated viscus with abscess due to toothpick 2018) : reports: Kidney stones HEENT: reports: None Psych: reports: None Musculoskeletal: reports: Other (Left olecranon fracture September 2020) Derm: reports: None MRSA Hx?: No - Past Surgical History General: reports: Other (Exploratory lap with removal of foreign body and Meckel's diverticulectomy March 2019) Ortho: reports: Other (ORIF left olecranon fracture September) - CONSULTS | PROCEDURES Procedures: 1. Chest x-ray is without acute cardiopulmonary findings. 2. Echocardiogram Report is preliminary.. Final must be reviewed. Mild concentric left ventricular hypertrophy. Systolic function is normal with an ejection fraction of 55 to 60%. No regional wall motion abnormalities. Paradoxical septal motion consistent with conduction delay. Mild ventricular, right, enlargement. Systolic function normal. Mild increase in left atrial volume index. Mild right atrial enlargement. No significant valvular heart disease. - HOSPITAL COURSE Hospital Course: As the patient was transferred from the ED to his room, he converted to sinus rhythm with PACs. Throughout his overnight stay telemetry confirmed sinus arrhythmia, or normal sinus rhythm or PACs. He remained asymptomatic. Had no chest pain palpitation shortness of breath. I discussed his [id number] 4, he was amenable to starting medication to reduce his risk of stroke. However his insurance plan allows both Eliquis and Xarelto. Xarelto is approximately $121 a month and Eliquis is slightly above that. He does not know if he will be able to afford that. I explained that he could be considered for Coumadin and he could discuss this with his primary care provider and be started on Coumadin and followed carefully after that for his PT and INR. He said he was running out of his lisinopril. When I went to go represcribed form to give him a 30-day supply, his pharmacy and transplant stated that quinapril was preferred and as such I switched him from lisinopril to quinapril with hydrochlorothiazide. I have also increased his metoprolol from 25 mg to 50 mg for rate control. He will need follow-up with his primary care provider for blood pressure. He will need follow-up for his anticoagulation request. Possibly be changed to Coumadin. And he may need a referral to cardiology to see if he is a candidate for ablation. I have also asked the patient to make sure he is seen every 4 to 6 months for follow-up. His A1c is 6.2% and he is in the prediabetic range. His TSH is 12.64 and he was started on Synthroid 75 mcg a day and needs a follow-up TSH in 4 to 6 weeks. Exam at discharge had a temperature of 36.5. Heart rate of 54. Blood pressure 120/65. Respiratory rate 16. 99% on room air. He is a tall male at 6 foot tall and weighs 123.5 kg. Quiet, muted affect. Neck is supple. Lungs are c lear. Regular rate and rhythm that is now bradycardic. Abdomen is benign. Good foot flow. No pedal edema. Able to get up, stand up, walk without any ataxia or deficits. - ALLERGIES Allergies/Adverse Reactions: Allergies Allergy/AdvReac Type Severity Reaction Status Date / Time Penicillins Allergy Unknown Verified 03/21/19 21:51 - MEDICATIONS Home Medications: Ambulatory Orders Medication Instructions Recorded Confirmed Aspirin [Aspirin EC] 81 mg PO DAILY 03/23/19 03/23/19 Multivitamin [Multivitamins] 1 tab PO DAILY 03/23/19 03/23/19 Simethicone [Gas Relief] 80 mg PO QID PRN 03/23/19 03/23/19 Acetaminophen [Tylenol] 325 mg PO Q4HR PRN tablet 03/24/19 Calcium Carbonate [Tums (Calcium 500 mg PO BID tablet 03/24/19 Carbonate 500mg)] Oxycodone HCl/Acetaminophen 1 each PO Q6HR PRN #20 tablet 03/24/19 [Percocet 10-325 mg Tablet] Pantoprazole [Protonix] 40 mg PO QDAC #30 tablet 03/24/19 polyethylene glycoL 3350 [Miralax] 17 gm PO DAILY PRN #30 packet 03/24/19 oxyCODONE [Roxicodone] 5 mg PO Q4-6H #30 tablet 10/20/20 Rivaroxaban [Xarelto] 20 mg PO DAILY #30 tablet 05/21/22 Atorvastatin [Lipitor] 20 mg PO DAILY 05/22/22 05/22/22 Levothyroxine [Synthroid] 75 mcg PO QDAC #30 tablet 05/22/22 Metoprolol Succinate [Toprol Xl] 50 mg PO DAILY #30 tablet 05/22/22 Quinapril/Hydrochlorothiazide 1 each PO DAILY #30 tablet 05/22/22 [Accuretic 20-25 mg Tablet] amLODIPine [Norvasc] 5 mg PO DAILY 05/22/22 05/22/22 - LABS Result Diagrams: 05/21/22 15:57 05/21/22 15:57
== END 2022-05-22 12:25 | disposition home or self-care (01) ==
LOC: ED 15:20 → MS2 16:37
PROVIDERS: ADMIT Specialist; ATTEND Specialist
DX: I48.0 Paroxysmal atrial fibrillation (principal); I10 Essential (primary) hypertension; E74.39 Other disorders of intestinal carbohydrate absorption; R73.9 Hyperglycemia, unspecified; Z20.822 Contact with and (suspected) exposure to COVID-19; E03.9 Hypothyroidism, unspecified; K21.9 Gastro-esophageal reflux disease without esophagitis; F17.210 Nicotine dependence, cigarettes, uncomplicated
CPT/HCPCS: 36415; 71045; 80053; 80306; 83036; 83690; 83735; 83880; 84443; 84484; 85025; 85379; 87635; 93005; 93306; 96372; 96374; 96375; 96376; 99284; 99285; A9270; G0378; J1650

== ENCOUNTER 2022-06-21 13:44 | Outpatient (CLI) | payer BC | END 2022-06-21 13:45 | disposition home or self-care (01) | LOC: MAC.MOP 13:44 | PROVIDERS: ATTEND Nurse Practitioner | DX: I48.0 Paroxysmal atrial fibrillation (principal) | CPT/HCPCS: 93246 ==

== ENCOUNTER 2022-07-16 10:30 | Outpatient (CLI) | payer BC | END 2022-07-16 10:31 | disposition home or self-care (01) | LOC: MAC.MOP 10:30 | PROVIDERS: ATTEND Nurse Practitioner | DX: I47.1 Supraventricular tachycardia (principal); I47.20 Ventricular tachycardia, unspecified; I49.1 Atrial premature depolarization; I49.3 Ventricular premature depolarization | CPT/HCPCS: 93248 ==